=== PATIENT | female | born 1995 | race Caucasian/White ===

== ENCOUNTER 2024-06-29 07:46 | Inpatient (IN) | payer OTHER, SELFPAY ==
--- NOTE | ~2024-06-29 | US_ITS ---
EXAMINATION: US ABDOMEN LIMITED CLINICAL INFORMATION: Right upper quadrant pain. Abnormal CT. COMPARISON: CT abdomen pelvis dated 06/29/2024. TECHNIQUE: Real-time imaging of the gallbladder was performed. FINDINGS: GALLBLADDER: The gallbladder contains multiple shadowing calculi. The gallbladder wall is markedly thickened, measuring up to 1.1 cm. There is fluid within the gallbladder wall. There is pericholecystic fluid. The personal care aid reports a negative sonographic Sierra sign, however, the patient was given pain medication prior to the examination. US/US abdomen limited IMPRESSION: Findings highly suggestive of acute cholecystitis as described.
--- NOTE | ~2024-06-29 | CT_ITS ---
EXAMINATION: CT ABDOMEN AND PELVIS WITHOUT CONTRAST CLINICAL INFORMATION: Mid abdominal pain and leukocytosis. Evaluate for appendicitis. COMPARISON: None available. TECHNIQUE: Multidetector volumetric imaging was performed from the superior aspect of the liver through the pubic symphysis. Sagittal and coronal reformatted images were obtained on the technologist's workstation. This CT examination was performed using dose optimization techniques as appropriate, variously including the following: *Automated exposure control *Adjustment of mA and/or kV according to patient size (this includes techniques or standardized protocols for targeted exams where dose is matched to indication/reason for exam; i.e. extremities or head) *Use of iterative reconstruction technique DLP: 414 mGy-cm FINDINGS: LUNG BASES: No pulmonary consolidation or pleural effusion. HEPATOBILIARY: Liver has normal size, shape, and attenuation. Gallbladder wall is diffusely thickened. No adjacent fat stranding or pericholecystic fluid. An irregular calcific density in the gallbladder fundus appears to represent a predominantly peripherally calcified stone. No dilated bile ducts. PANCREAS: .No edema, pancreatic ductal dilatation or mass. SPLEEN: Normal. ADRENAL GLANDS: Normal. KIDNEYS AND URETERS: Kidneys have normal size and attenuation. No perinephric fluid collection, urolithiasis or hydroureteronephrosis. BLADDER: Normal. BOWEL AND PERITONEUM: Stomach and small bowel are unremarkable. No dilated loops. The appendix is normal. No overt colonic wall thickening or mesenteric fat stranding. No free fluid or pneumoperitoneum. ABDOMINAL WALL: Unremarkable. VASCULATURE: Normal for noncontrast examination. LYMPH NODES: No pathologic sized lymph nodes in the abdomen or pelvis. No inguinal lymphadenopathy. PELVIC VISCERA: Unremarkable. MUSCULOSKELETAL: Unremarkable. CT/CT abdomen pelvis wo IV con IMPRESSION: * No evidence of appendicitis. * The irregular, somewhat rim-like calcification at the gallbladder fundus is likely from cholelithiasis and the gallbladder wall is diffusely thickened. Although wall thickening could be a manifestation of cholecystitis, there is no adjacent fat stranding or pericholecystic fluid. Query if patient is developing pain more localized to the right upper quadrant. These CT imaging abnormalities could be correlated with right upper quadrant ultrasound and/or hepatobiliary scintigraphy, if deemed clinically appropriate.
--- NOTE | 2024-06-29 08:02 | ECG_ITS ---
Test Reason : EPIGASTRIC PAIN Blood Pressure : / mmHG Vent. Rate : 065 BPM Atrial Rate : 065 BPM P-R Int : 152 ms QRS Dur : 086 ms QT Int : 416 ms P-R-T Axes : 031 042 027 degrees QTc Int : 432 ms Normal sinus rhythm Normal ECG No previous ECGs available Referred By: Jocelyn Celaya Electronically Signed By:MILLY VILLALPANDO
--- NOTE | 2024-06-29 08:03 | ED.ABDPAIN ---
HPI - Abdominal Pain General Chief Complaint: Nausea/Vomiting/Diarrhea Stated Complaint: ABD PAIN X6H,VOMITING PER EMS Time Seen by Provider: 06/29/24 07:51 Source: patient and EMS Mode of arrival: EMS Limitations: no limitations History of Present Illness ED Provider: DR. Celaya HPI narrative: 28-year-old assigned as male at , and would like to be called female presented with nausea and vomiting with epigastric abdominal pain started since last night after eating a big bag of chips, no other sick contacts patient lives home alone, no recent use of antibiotic, patient declined alcohol abuse but admit to smoking marijuana daily. Related Data Home Medications ?Medication ?Instructions ?Recorded ?Confirmed estradiol valerate 20 mg/mL mg IM 06/29/24 intramuscular oil tamsulosin 0.4 mg capsule 0.4 mg PO DAILY 06/29/24 Allergies Allergy/AdvReac Type Severity Reaction Status Date / Time No Known Allergies Allergy Verified 06/29/24 08:22 Review of Systems Review of Systems All other systems are reviewed and are negative Constitutional: Reports as per HPI and Reports no additional constitutional complaints Eyes: Reports as per HPI and Reports no additional eye complaints Reports system reviewed and no additional complaints, except as documented Cardiovascular: Reports as per HPI and Reports no additional cardiovascular complaints Respiratory: Reports as per HPI and Reports no additional respiratory complaints Gastrointestinal: Reports as per HPI and Reports no additional gastrointestinal complaints Genitourinary: Reports no additional female genitourinary complaints Musculoskeletal: Reports no additional musculoskeletal complaints Skin/Breast: Reports system reviewed and no additional complaints, except as docu Psychiatric: Reports no additional psychiatric complaints Endocrine: Reports no additional endocrine complaints Hematologic/Lymphatic: Reports no additional hematologic/lymphatic complaints Allergic/Immunologic: Reports no additional allergic/immunologic complaints Reports system reviewed and no additional complaints, except as documented and Reports Abnormal speech present [facility] Past Medical History Medical History (Updated 06/29/24 @ 14:07 by Rufino Meyer MD) Gallstone Social History Social History Advance Directives: No Advance Directives Information Provided: No Physical Exam ED Vital Signs: Vital Signs - 24 hr 06/29/24 08:17 06/29/24 13:02 Temperature 98.1 F 98.2 F Pulse Rate 76 71 Respiratory Rate 14 14 Blood Pressure 121/71 123/79 Pulse Oximetry 94 97 Oxygen Delivery Method Room Air Room Air BMI result Body Mass Index 23.3 Vital signs have been reviewed and appear to be correct. Blood pressure elevated. Heart rate normal. Respiratory rate normal. Temperature normal. Oxygen saturation normal. Appearance: Alert. Oriented X3. No acute distress. Head: Normal external exam. Normocephalic. Atraumatic. No Pak signs noted. No raccoon eyes noted Eyes: PERRLA. EOMI. Conjunctiva and sclera normal. Eyelids normal. ENT: TM's Normal. Pharynx normal. Uvula midline. Moist mucous membranes. No trismus noted. No drooling noted. No muffled voice noted. Neck: Normal inspection. Neck supple. FROM. No adenopathy. Thyroid Normal. No meningeal signs. No neck mass noted. CVS: Normal heart rate and rhythm. Heart sound normal. No murmurs noted. Pulses normal throughout. Respiratory: No respiratory distress. Painless inspiration. Breath sounds normal. No wheezes/rales/rhonchi noted. Chest nontender. No accessory muscle usage noted or decreased air movement noted. Abdomen: Soft, mild epigastric tenderness, no guarding, no rebound tenderness. Bowel sounds normal in all 4 quadrants. No distention noted. No organomegaly noted. No visible injury noted. Rectal exam: No external or internal hemorrhoid, no active bleeding, stool yellow guaiac negative, done in the presence of female piccolo mechanic in room. Back: No CVA tenderness. Full range of motion noted. Skin: Skin warm and dry. Normal skin color. Normal skin turgor. No rashes/lesions/lacerations noted. Extremities: No lower extremity edema. Extremities exhibit normal range of motion. Extremities nontender. Neuro: Oriented X 3. Cranial nerve exam: II-XII are grossly intact No motor deficit. No sensory deficit. Reflexes normal. Course Reevaluation(s) Reevaluation #1: Abdominal pain with nausea and vomiting, CT showed cholelithiasis ultrasound is confirming acute cholecystitis. Discussed with Dr. Meyer covering for surgery today, no sepsis, start on Zosyn, NPO. Time: 12:52 Medical Decision Making Differential Diagnosis Differential Diagnoses: The differential diagnosis associated with the presentation includes (Pancreatitis, gastritis, acute cholecystitis, acute appendicitis, colitis, acute diverticulitis, dehydration, electrolyte derangement, severe anemia.) Admission/Observation Consideration of admission/observation: Escalation of care including admission/observation considered Consult Healthcare Provider Management of the patient was discussed with: Relationship Banker (Dr. Meyer) Lab Data MDM Lab Attestation statement: I reviewed the patient's lab results. 06/29/24 08:30 06/29/24 08:30 Labs: Lab Results 06/29/24 06/29/24 06/29/24 Range/Units 08:30 08:33 13:12 WBC 13.7 H (4.8-10.8) X10*3/uL RBC 4.38 (4.20-5.50) X10*6/uL Hgb 13.2 (12.0-16.0) g/dl Hct 37.5 (37.0-47.0) % MCV 85.6 (80.0-98.0) fL MCH 30.1 (27.0-33.0) pg MCHC 35.2 H (31.0-35.0) g/dl RDW 12.2 (11.0-16.0) % Plt Count 232 (160-400) X10*3/uL MPV 10.6 (9.4-12.3) fL Immature Gran % (Auto) 0.4 (0.0-0.4) % Neut % (Auto) 84.5 H (45-73) % Lymph % (Auto) 9.7 L (20-40) % [place] % (Auto) 5.2 (2-11) % Eos % (Auto) 0.0 (0-4) % Baso % (Auto) 0.2 (0-2) % Lymph # (Auto) 1.3 (1.2-4.9) X10*3/uL [place] # (Auto) 0.7 (0.1-1.2) X10*3/uL Eos # (Auto) 0.0 (0.0-0.4) X10*3/uL Baso # (Auto) 0.0 (0.0-0.2) X10*3/uL Abs Immat Gran (auto) 0.05 H (0.00-0.03) X10*3/uL Absolute Neuts (auto) 11.6 H (2.0-8.3) x10*3/uL Absolute Nucleated RBC 0.000 (0.0-0.012) X10*3/uL Nucleated RBC % (auto) 0.0 (0.0-0.2) /100WBC Sodium 141 (135-145) mmol/L Potassium 3.8 (3.3-5.1) mmol/L Chloride 107 (96-108) mmol/L Carbon Dioxide 23 (22-29) mmol/L Anion Gap 15 (12-20) BUN 9 (9-16) mg/dL Creatinine 0.81 (0.5-1.4) mg/dL Estim Creat Clear Calc 98.7 Estimated GFR > 60 Random Glucose 109 (60-115) mg/dL Calcium 9.6 (8.4-10.2) mg/dL Total Bilirubin 0.3 (0.0-1.0) mg/dL Direct Bilirubin 0.1 (0.0-0.5) mg/dL AST 23 (5-31) U/L ALT 29 (0-31) U/L Alkaline Phosphatase 49 (39-117) U/L Troponin I High Sens < 2.7 (<3.5-17.0) ng/L Total Protein 7.2 (6.5-8.0) g/dL Albumin 4.4 (3.5-5.0) g/dL Lipase 14 (8-78) U/L Urine Color Yellow Urine Appearance Clear Urine pH >= 9.0 (5.0-9.0) Ur Specific [place] 1.025 (1.005-1.025) Urine Protein 30 (1+) H (Neg-Trace) mg/dL Urine Glucose (UA) Negative (Negative) mg/dL Urine Ketones Negative (Negative) mg/dL Urine Blood Negative (Negative) Urine Nitrite Negative (Negative) Ur Leukocyte Esterase Moderate (2+) H (Negative) Urine RBC 0-2 (0-2) /HPF Urine WBC 21-50 (0-5) /HPF Ur Squamous Epith Cells 3-5 (0-2) /HPF Urine Bacteria None Seen (None Seen) Hyaline Casts 0-2 (0-2) /LPF Urine Test NEGATIVE (NEGATIVE) Stool Occult Blood NEGATIVE (NEGATIVE) Urine Opiates Screen Not Detected (Not Detect) Ur Buprenorphine Scrn Not Detected (Not Detect) ng/mL Ur Oxycodone Screen Not Detected (Not Detect) ng/mL Urine Methadone Screen Not Detected (Not Detect) ng/mL Urine Fentanyl Screen Not Detected (Not Detect) Ur Barbiturates Screen Not Detected (Not Detect) Ur Phencyclidine Scrn Not Detected (Not Detect) Ur Amphetamines Screen Not Detected (Not Detect) U Benzodiazepines Scrn Not Detected (Not Detect) Urine Cocaine Screen Not Detected (Not Detect) U Marijuana (THC) Screen POSITIVE H (Not Detect) Independent Interpretation I performed an independent interpretation of an: Ultrasound (Acute cholecystitis) and CT Scan (Abdomen pelvis: No evidence of appendicitis. * The irregular, somewhat rim-like calcification at the gallbladder fundus is likely from cholelithiasis and the gallbladder wall is diffusely thickened. Although wall thickening could be a manifestation of cholecystitis, there is no adjacent fat strandi) Radiology Impression Discussion of test interpretation with radiology: I have reviewed the radiologist's reading. Medications Administered Discontinued Medications Generic Name Dose Route Start Last Admin Trade Name Freq PRN Reason Stop Dose Admin Al Hydroxide/Mg Hydroxide 30 ml 06/29/24 08:01 06/29/24 08:33 Magnesium Hydrox/Alum Hydrox 30 Ml Oral.Susp PO 06/29/24 08:02 30 ml ONCE ONE Administration Famotidine 20 mg 06/29/24 08:01 06/29/24 08:33 Famotidine/Pf 20 Mg/2 Ml Vial IVPUSH 06/29/24 08:02 20 mg ONCE ONE Administration Sodium Chloride 1,000 mls @ 999 mls/hr 06/29/24 08:01 06/29/24 13:35 Ns IV 06/29/24 09:01 Infused .Q1H1M ONE Infusion Piperacillin Sod/Tazobactam 50 mls @ 100 mls/hr 06/29/24 12:52 06/29/24 13:57 Sod 3.375 gm/ Sodium Chloride IV 06/29/24 13:21 100 mls/hr ONCE ONE Administration Ondansetron HCl 4 mg 06/29/24 08:01 06/29/24 08:33 Ondansetron Hcl 4 Mg/2 Ml Vial IVPUSH 06/29/24 08:02 4 mg ONCE ONE Administration Discharge Plan Discharge Clinical Impression: Acute cholecystitis Patient Disposition: Admitted As Inpatient
[2024-06-29 08:17] VITALS: BP 121/71; BP 148/82; PULSE 103; PULSE 76; RESP 14; TEMP 36.7; O2SAT 94; O2SAT 96; BMI 23.3
[2024-06-29] MEDS: 0.9 % Sodium Chloride 1,000 ML 999 ML IV (08:30)
[2024-06-29 08:33] LABS: MANUAL DIFF FLAG NO
[2024-06-29] MEDS: Famotidine/PF 20 MG/2 ML VIAL IVPUSH (08:33)
[2024-06-29] MEDS: ondansetron HCL 4 MG/2 ML VIAL IVPUSH (08:33)
[2024-06-29] MEDS: Magnesium Hydrox/Alum Hydrox 30 ML ORAL.SUSP PO (08:33)
[2024-06-29 08:35] LABS: Basophils Percent Auto 0.2 % (0-2); Hematocrit 37.5 % (37.0-47.0); Hemoglobin 13.2 g/dl (12.0-16.0); Imm Gran Abs Auto 0.05 X10*3/uL (0.00-0.03); Imm Gran Pct Auto 0.4 % (0.0-0.4); Lymphocytes Absolute Auto 1.3 X10*3/uL (1.2-4.9); Lymphocytes Percent Auto 9.7 % (20-40); Mean Corpuscular HGB Conc 35.2 g/dl (31.0-35.0); Mean Corpuscular Hemoglobin 30.1 pg (27.0-33.0); Mean Corpuscular Volume 85.6 fL (80.0-98.0); Mean Platelet Volume 10.6 fL (9.4-12.3); Monocytes Absolute Auto 0.7 X10*3/uL (0.1-1.2); Monocytes Percent Auto 5.2 % (2-11); Neutrophils Absolute Auto 11.6 x10*3/uL (2.0-8.3); Neutrophils Percent Auto 84.5 % (45-73); Platelet Count 232 X10*3/uL (160-400); Red Blood Count 4.38 X10*6/uL (4.20-5.50); Red Cell Distribution Width 12.2 % (11.0-16.0); White Blood Count 13.7 X10*3/uL (4.8-10.8)
[2024-06-29 08:49] LABS: OBS Int Ctl Valid YES; OBS1 NEGATIVE (NEGATIVE)
[2024-06-29 08:51] LABS: Alanine Aminotransferase 29 U/L (0-31); Albumin Level 4.4 g/dL (3.5-5.0); Alkaline Phosphatase 49 U/L (39-117); Anion Gap 15 (12-20); Aspartate Amino Transferase 23 U/L (5-31); Bilirubin Direct 0.1 mg/dL (0.0-0.5); Bilirubin Total 0.3 mg/dL (0.0-1.0); Blood Urea Nitrogen 9 mg/dL (9-16); Calcium 9.6 mg/dL (8.4-10.2); Carbon Dioxide 23 mmol/L (22-29); Chloride 107 mmol/L (96-108); Creatinine Clr Calc Pharmacy 98.7; Estimated Glomerular Filt Rate > 60; Glucose Random 109 mg/dL (60-115); Lipase 14 U/L (8-78); Potassium 3.8 mmol/L (3.3-5.1); Sodium 141 mmol/L (135-145); Total Protein 7.2 g/dL (6.5-8.0)
[2024-06-29 09:13] LABS: Troponin-I High Sensitivity < 2.7 ng/L (<3.5-17.0)
[2024-06-29 13:02] VITALS: BP 123/79; PULSE 71; RESP 14; TEMP 36.8; O2SAT 97
[2024-06-29 13:22] LABS: Appearance Urine Clear; Color Urine Yellow; Glucose Urine UA Negative (Negative); Leukocyte Esterase Urine Moderate (2+) (Negative); Nitrite Urine Negative (Negative); PH >= 9.0 (5.0-9.0); Specific Gravity - Urine 1.025 (1.005-1.025); UMIC TRIGGER UACC YES; Urine Blood Negative (Negative); Urine Ketones Negative (Negative); Urine Protein 30 (1+) mg/dL (Neg-Trace)
[2024-06-29 13:24] LABS: UPreg QC Valid YES; Urine Pregnancy NEGATIVE (NEGATIVE)
[2024-06-29 13:32] LABS: Bacteria Urine None Seen (None Seen); Hyaline Casts Urine 0-2 /LPF (0-2); RBC Urine 0-2 /HPF (0-2); UACC Culture Trigger YES; WBC Urine 21-50 /HPF (0-5)
[2024-06-29 13:34] LABS: Amphetamine Screen Urine Not Detected (Not Detect); Barbiturates, Urine Not Detected (Not Detect); Benzodiazepines Screen Urine Not Detected (Not Detect); Buprenorphine Scr Not Detected (Not Detect); Cannabinoid Screen Urine POSITIVE (Not Detect); Cocaine Screen Urine Not Detected (Not Detect); Fentanyl, urine Not Detected (Not Detect); Methadone Screen, Urine Not Detected (Not Detect); Opiate Screen Urine Not Detected (Not Detect); Oxycodone Screen Urine Not Detected (Not Detect); Phencyclidine Screen Urine Not Detected (Not Detect)
[2024-06-29] MEDS: Piperacillin Sodium/Tazobactam 3.375 GM in 0.9 % Sodium Chloride 50 ML IV ×2 (13:57→20:15)
--- NOTE | 2024-06-29 14:03 | PM.HPGS ---
History of Present Illness History of Present Illness Date of Service: 07/01/24 Chief complaint: gallstone Narrative: Chuck Mao is a 28 year old female (assigned male gender at ) here in the ER for abdominal pain. She says that around midnight last night, she had some pain in the epigastric area. This seemed to have persisted for several hours shows he she decided to come to the emergency room around 07:00 o'clock in the morning. She says that the pain has resolved he has not time however She had a CAT scan done showing a large gallstone with question of gallbladder wall thickening. She denies any similar episodes like this in the past. She does state that she has had some diffuse mild abdominal pain before She denies any vomiting but did have some nausea. She denies any other GI complaints. The only medication she takes estradiol. Review of Systems Constitutional: Constitutional: Denies chills and Denies fever(s) Cardiovascular: Cardiovascular: Denies chest pain, Denies dyspnea and Denies dyspnea on exertion Respiratory: Respiratory: Denies cough, Denies dyspnea and Denies dyspnea on exertion Gastrointestinal: Gastrointestinal: Denies hematochezia and Denies change in bowel habits Genitourinary: Genitourinary: Denies hematuria Musculoskeletal: Musculoskeletal: Denies back pain and Denies limited range of motion Neurologic: Denies focal weakness and Denies convulsions Psychiatric: Psychiatric: Denies depression and Denies mood swings [facility] Past Medical History Medical History (Updated 06/29/24 @ 14:07 by Rufino Meyer MD) Gallstone Social History Social History Household Members: None Housing: Apartment Do you presently have visiting nurse or other home services: No Patient Tobacco Use Status: Never used Tobacco Substance Use Type: Marijuana service: No Meds Allergies Allergy/AdvReac Type Severity Reaction Status Date / Time No Known Allergies Allergy Verified 06/29/24 08:22 Home Medications ?Medication ?Instructions ?Recorded ?Confirmed ?Last Taken ?Type acetaminophen 325 mg tablet 650 mg PO Q6H PRN Migraine Headache 06/29/24 06/29/24 Unknown History (Tylenol) estradiol valerate 20 mg/mL 5 mg IM FR 06/29/24 06/29/24 06/26/24 08:00 History intramuscular oil ibuprofen 200 mg tablet 400 mg PO Q6H PRN Migraine Headache 06/29/24 06/29/24 Unknown History Physical Exam Vital Signs: Vital Signs: Last Vital Signs Temp 98.2 F 06/29/24 13:02 Pulse 71 06/29/24 13:02 Resp 14 06/29/24 13:02 BP 123/79 06/29/24 13:02 Pulse Ox 97 06/29/24 13:02 O2 Del Method Room Air 06/29/24 13:02 BMI result Body Mass Index 23.3 Const: Other: Denies pain at this time General: comfortable and no acute distress Orientation/consciousness: patient oriented x3 Neck: Neck: Yes no lymphadenopathy Resp: Auscultation: clear to auscultation bilaterally Cardio: Rhythm: regular rhythm GI: Other: Nontender, no Sierra's sign Palpation (GI): Soft to palpation, nontender and no guarding Neuro: General: patient oriented x3 Results Results Labs: Short CBC 06/29/24 Range/Units 08:30 WBC 13.7 H (4.8-10.8) X10*3/uL Hgb 13.2 (12.0-16.0) g/dl Hct 37.5 (37.0-47.0) % Plt Count 232 (160-400) X10*3/uL BMP 06/29/24 08:30 Sodium 141 Potassium 3.8 Chloride 107 Carbon Dioxide 23 BUN 9 Creatinine 0.81 Calcium 9.6 Liver Function 06/29/24 Range/Units 08:30 Total Bilirubin 0.3 (0.0-1.0) mg/dL Direct Bilirubin 0.1 (0.0-0.5) mg/dL AST 23 (5-31) U/L ALT 29 (0-31) U/L Alkaline Phosphatase 49 (39-117) U/L Albumin 4.4 (3.5-5.0) g/dL Urine 06/29/24 Range/Units 13:12 Urine Color Yellow Urine Appearance Clear Urine pH >= 9.0 (5.0-9.0) Ur Specific [place] 1.025 (1.005-1.025) Urine Protein 30 (1+) H (Neg-Trace) mg/dL Urine Glucose (UA) Negative (Negative) mg/dL Urine Test NEGATIVE (NEGATIVE) Abdomen CT scan report/results: report reviewed and image reviewed CT scan - pelvis: report reviewed and image reviewed Additional studies: Laboratory Results WBC 13.7 X10*3/uL (4.8-10.8) H 06/29/24 08:30 RBC 4.38 X10*6/uL (4.20-5.50) 06/29/24 08:30 Hgb 13.2 g/dl (12.0-16.0) 06/29/24 08:30 Hct 37.5 % (37.0-47.0) 06/29/24 08:30 MCV 85.6 fL (80.0-98.0) 06/29/24 08:30 MCH 30.1 pg (27.0-33.0) 06/29/24 08:30 MCHC 35.2 g/dl (31.0-35.0) H 06/29/24 08:30 RDW 12.2 % (11.0-16.0) 06/29/24 08:30 Plt Count 232 X10*3/uL (160-400) 06/29/24 08:30 MPV 10.6 fL (9.4-12.3) 06/29/24 08:30 Immature Gran % (Auto) 0.4 % (0.0-0.4) 06/29/24 08:30 Neut % (Auto) 84.5 % (45-73) H 06/29/24 08:30 Lymph % (Auto) 9.7 % (20-40) L 06/29/24 08:30 [place] % (Auto) 5.2 % (2-11) 06/29/24 08:30 Eos % (Auto) 0.0 % (0-4) 06/29/24 08:30 Baso % (Auto) 0.2 % (0-2) 06/29/24 08:30 Lymph # (Auto) 1.3 X10*3/uL (1.2-4.9) 06/29/24 08:30 [place] # (Auto) 0.7 X10*3/uL (0.1-1.2) 06/29/24 08:30 Eos # (Auto) 0.0 X10*3/uL (0.0-0.4) 06/29/24 08:30 Baso # (Auto) 0.0 X10*3/uL (0.0-0.2) 06/29/24 08:30 Abs Immat Gran (auto) 0.05 X10*3/uL (0.00-0.03) H 06/29/24 08:30 Absolute Neuts (auto) 11.6 x10*3/uL (2.0-8.3) H 06/29/24 08:30 Absolute Nucleated RBC 0.000 X10*3/uL (0.0-0.012) 06/29/24 08:30 Nucleated RBC % (auto) 0.0 /100WBC (0.0-0.2) 06/29/24 08:30 Sodium 141 mmol/L (135-145) 06/29/24 08:30 Potassium 3.8 mmol/L (3.3-5.1) 06/29/24 08:30 Chloride 107 mmol/L (96-108) 06/29/24 08:30 Carbon Dioxide 23 mmol/L (22-29) 06/29/24 08:30 Anion Gap 15 (12-20) 06/29/24 08:30 BUN 9 mg/dL (9-16) 06/29/24 08:30 Creatinine 0.81 mg/dL (0.5-1.4) 06/29/24 08:30 Estim Creat Clear Calc 98.7 06/29/24 08:30 Estimated GFR > 60 06/29/24 08:30 Random Glucose 109 mg/dL (60-115) 06/29/24 08:30 Calcium 9.6 mg/dL (8.4-10.2) 06/29/24 08:30 Total Bilirubin 0.3 mg/dL (0.0-1.0) 06/29/24 08:30 Direct Bilirubin 0.1 mg/dL (0.0-0.5) 06/29/24 08:30 AST 23 U/L (5-31) 06/29/24 08:30 ALT 29 U/L (0-31) 06/29/24 08:30 Alkaline Phosphatase 49 U/L (39-117) 06/29/24 08:30 Troponin I High Sens < 2.7 ng/L (<3.5-17.0) 06/29/24 08:30 Total Protein 7.2 g/dL (6.5-8.0) 06/29/24 08:30 Albumin 4.4 g/dL (3.5-5.0) 06/29/24 08:30 Lipase 14 U/L (8-78) 06/29/24 08:30 Urine Color Yellow 06/29/24 13:12 Urine Appearance Clear 06/29/24 13:12 Urine pH >= 9.0 (5.0-9.0) 06/29/24 13:12 Ur Specific [place] 1.025 (1.005-1.025) 06/29/24 13:12 Urine Protein 30 (1+) mg/dL (Neg-Trace) H 06/29/24 13:12 Urine Glucose (UA) Negative mg/dL (Negative) 06/29/24 13:12 Urine Ketones Negative mg/dL (Negative) 06/29/24 13:12 Urine Blood Negative (Negative) 06/29/24 13:12 Urine Nitrite Negative (Negative) 06/29/24 13:12 Ur Leukocyte Esterase Moderate (2+) (Negative) H 06/29/24 13:12 Urine RBC 0-2 /HPF (0-2) 06/29/24 13:12 Urine WBC 21-50 /HPF (0-5) 06/29/24 13:12 Ur Squamous Epith Cells 3-5 /HPF (0-2) 06/29/24 13:12 Urine Bacteria None Seen (None Seen) 06/29/24 13:12 Hyaline Casts 0-2 /LPF (0-2) 06/29/24 13:12 Urine Test NEGATIVE (NEGATIVE) 06/29/24 13:12 Stool Occult Blood NEGATIVE (NEGATIVE) 06/29/24 08:33 Urine Opiates Screen Not Detected (Not Detect) 06/29/24 13:12 Ur Buprenorphine Scrn Not Detected ng/mL (Not Detect) 06/29/24 13:12 Ur Oxycodone Screen Not Detected ng/mL (Not Detect) 06/29/24 13:12 Urine Methadone Screen Not Detected ng/mL (Not Detect) 06/29/24 13:12 Urine Fentanyl Screen Not Detected (Not Detect) 06/29/24 13:12 Ur Barbiturates Screen Not Detected (Not Detect) 06/29/24 13:12 Ur Phencyclidine Scrn Not Detected (Not Detect) 06/29/24 13:12 Ur Amphetamines Screen Not Detected (Not Detect) 06/29/24 13:12 U Benzodiazepines Scrn Not Detected (Not Detect) 06/29/24 13:12 Urine Cocaine Screen Not Detected (Not Detect) 06/29/24 13:12 U Marijuana (THC) Screen POSITIVE (Not Detect) H 06/29/24 13:12 Impressions Abdomen/Pelvis CT 06/29/24 10:33 IMPRESSION: * No evidence of appendicitis. * The irregular, somewhat rim-like calcification at the gallbladder fundus is likely from cholelithiasis and the gallbladder wall is diffusely thickened. Although wall thickening could be a manifestation of cholecystitis, there is no adjacent fat stranding or pericholecystic fluid. Query if patient is developing pain more localized to the right upper quadrant. These CT imaging abnormalities could be correlated with right upper quadrant ultrasound and/or hepatobiliary scintigraphy, if deemed clinically appropriate. Assessment and Plan (1) Gallstone: Status: Acute 28 year old female who had epigastric pain overnight. This has since resolved. Her imaging studies show a gallstone with question of bowel wall thickening. There is no pericholecystic fluid or any fat stranding or any other inflammatory changes I did explain to her that she may have had biliary colic or cholecystitis. Her pain has completely resolved and she had wanted to be discharged. I had recommended for her to stay in the hospital to be observed at least for now. She has recurrence of pain or other symptoms that may be relatable to gallstones, I explained to her that I would recommend proceeding with cholecystectomy. I did describe to her the technique of laparoscopic cholecystectomy and possible open cholecystectomy. I reviewed the risks including but not limited to bleeding, infections, injury to other organs, bile leak, retained stones, as well as the benefits and alternatives She finally agreed to stay now and says that if possible, she would like to hold off on surgical intervention. We will rediscuss this in the morning. Since she has some leukocytosis I will start her on some Zosyn. She is hemodynamically stable and looks well overall. Quality Stroke Does the patient have a stroke diagnosis?: No VTE Prior VTE?: No VTE Risk Level:: Medical - low VTE Device Contraindication: Treatment Not Indicated VTE Drug Contraindication: Treatment Not Indicated Procedures Date of Service Date of Service: 07/01/24
[2024-06-29 14:31] VITALS: BP 114/60; PULSE 69; RESP 14; TEMP 37.1; O2SAT 98
[2024-06-29] MEDS: Lactated Ringers 1,000 ML 80 ML IVCONT (15:02)
--- NOTE | 2024-06-29 15:04 | PHA.MEDREC ---
Pharmacy Consult ? Medication Reconciliation Pharmacy has completed the medication reconciliation. Spoke with patient.
[2024-06-29 16:43] VITALS: BP 119/75; PULSE 70; RESP 16; TEMP 37.1; O2SAT 100
--- NOTE | 2024-06-29 16:45 | MHC.EDTECH ---
This pct assumed care of Patient at 1500 ,vitals taken ,Patient wants to wait to change into hospital gown until she goes upstairs .
--- NOTE | 2024-06-29 17:46 | PM.EVENT ---
Event Note Date of Service: 06/30/24 Event Note: Seen on late afternoon rounds Says he is doing well Denies pain Stable vital signs Abdomen soft, nontender We will re-evaluate tomorrow morning He currently states that he would like to hold off on any surgical intervention Time Spent With Patient Time: Total time managing care of this patient today ____ minutes.
--- NOTE | 2024-06-29 18:07 | PC.NURSE ---
Patient alert and oriented x 3. Patient has a 20g in left AC. Patient denies any pain. Dr. Meyer has consulted for surgery. Patient on a clear liquid diet. Patient still considering whether or not to have surgery. Will continue with plan of care.
[2024-06-29 20:13] VITALS: BP 117/80; PULSE 70; RESP 16; TEMP 36.8; O2SAT 98
[2024-06-29 22:35] VITALS: BP 130/90; PULSE 97; RESP 16; TEMP 36.7; O2SAT 99
[2024-06-30] MEDS: Piperacillin Sodium/Tazobactam 3.375 GM in 0.9 % Sodium Chloride 50 ML IV ×3 (00:53→12:17)
[2024-06-30] MEDS: 0.9 % Sodium Chloride Flush 3 ML SYRINGE IVFLUSH ×2 (00:53→07:11)
[2024-06-30 03:40] VITALS: BP 118/66; PULSE 74; RESP 18; TEMP 36.3; O2SAT 97
[2024-06-30] MEDS: Lactated Ringers 1,000 ML 80 ML IVCONT (03:40)
[2024-06-30] MEDS: Acetaminophen 325 MG TABLET 650 MG PO (07:10)
[2024-06-30 07:19] VITALS: BP 110/67; PULSE 60; RESP 16; TEMP 36.8; O2SAT 100
--- NOTE | 2024-06-30 07:54 | P.PNGS_ITS ---
Subjective Subjective Date of Service: 07/01/24 Interval history: Says she feels well this morning Denies right upper quadrant pain Does state that he has some discomfort in the lower pelvis near his urinary bladder and his lower back she wants to eat Physical Exam 2 Vital Signs: Vital Signs: Last Vital Signs Temp 98.2 F 06/30/24 07:19 Pulse 60 06/30/24 07:19 Resp 16 06/30/24 07:19 BP 110/67 06/30/24 07:19 Pulse Ox 100 06/30/24 07:19 O2 Del Method Room Air 06/30/24 07:19 BMI result Body Mass Index 23.3 Const: Other: Somewhat anxious General: comfortable and no acute distress Resp: Effort & Inspection: normal respiratory effort Cardio: Rate: regular rate GI: Other: No tenderness, no Sierra's sign Palpation (GI): Soft to palpation, not firm, nontender and no guarding Objective Data Active Medications Acetaminophen (Acetaminophen 325 Mg Tablet) 650 mg PO Q6H PRN PRN Reason: Pain, Mild (Pain Scale 1-3), fever or headache Last Admin: 06/30/24 07:10 Dose: 650 mg Documented By: WESLEY Calcium Carbonate (Calcium Carbonate 750 Mg Tab.Chew) 750 mg PO Q4H PRN PRN Reason: Heartburn Lactated Ringer's (Lr) 1,000 mls @ 80 mls/hr IVCONT .[id number] [facility] Last Infusion: 06/30/24 06:35 Dose: 0 mls/hr Documented By: RANDI Piperacillin Sod/Tazobactam (Sod 3.375 gm/ Sodium Chloride) 50 mls @ 100 mls/hr IV Q6H [facility] Last Infusion: 06/30/24 07:04 Dose: Infused Documented By: WESLEY Melatonin (Melatonin 3 Mg Tablet) 6 mg PO BEDTIME PRN PRN Reason: Insomnia Morphine Sulfate (Morphine Sulfate 4 Mg/Ml Cartridge) 2 mg IVPUSH Q4H PRN; Protocol PRN Reason: Pain, Severe (Pain Scale 7-10) Oxycodone HCl (Oxycodone Hcl Immed Release 5 Mg Tablet) 5 mg PO Q4H PRN PRN Reason: Pain, Moderate(Pain Scale 4-6) Sodium Chloride (0.9 % Sodium Chloride Flush 3 Ml Syringe) 3 ml IVFLUSH QSHIFT [facility] Last Admin: 06/30/24 07:11 Dose: 3 ml Documented By: WESLEY Labs 06/30/24 09:11 06/30/24 09:11 Labs: Laboratory Results - last 24 hr 06/29/24 06/29/24 06/29/24 08:30 08:33 13:12 MCV 85.6 MCH 30.1 MCHC 35.2 H RDW 12.2 Plt Count 232 MPV 10.6 Immature Gran % (Auto) 0.4 Neut % (Auto) 84.5 H Lymph % (Auto) 9.7 L Garvin % (Auto) 5.2 Eos % (Auto) 0.0 Baso % (Auto) 0.2 Lymph # (Auto) 1.3 Garvin # (Auto) 0.7 Eos # (Auto) 0.0 Baso # (Auto) 0.0 Abs Immat Gran (auto) 0.05 H Absolute Neuts (auto) 11.6 H Absolute Nucleated RBC 0.000 Nucleated RBC % (auto) 0.0 Anion Gap 15 Estim Creat Clear Calc 98.7 Estimated GFR > 60 Random Glucose 109 Calcium 9.6 Total Bilirubin 0.3 Direct Bilirubin 0.1 AST 23 ALT 29 Alkaline Phosphatase 49 Troponin I High Sens < 2.7 Total Protein 7.2 Albumin 4.4 Lipase 14 Urine Color Yellow Urine Appearance Clear Urine pH >= 9.0 Ur Specific [place] 1.025 Urine Protein 30 (1+) H Urine Glucose (UA) Negative Urine Ketones Negative Urine Blood Negative Urine Nitrite Negative Ur Leukocyte Esterase Moderate (2+) H Urine RBC 0-2 Urine WBC 21-50 Ur Squamous Epith Cells 3-5 Urine Bacteria None Seen Hyaline Casts 0-2 Urine Test NEGATIVE Stool Occult Blood NEGATIVE Urine Opiates Screen Not Detected Ur Buprenorphine Scrn Not Detected Ur Oxycodone Screen Not Detected Urine Methadone Screen Not Detected Urine Fentanyl Screen Not Detected Ur Barbiturates Screen Not Detected Ur Phencyclidine Scrn Not Detected Ur Amphetamines Screen Not Detected U Benzodiazepines Scrn Not Detected Urine Cocaine Screen Not Detected U Marijuana (THC) Screen POSITIVE H Procedures Date of Service Date of Service: 07/01/24 Progress Note: A&P Assessment and plan (1) Gallstone: Status: Acute Assessment and Plan: She denies any pain or tenderness at this time Imaging studies suggest cholecystitis No fever Looks well overall She states that she wants to hold off on surgery for now if possible I will start her on diet and re-evaluate later on today Labs pending Time Spent With Patient Time: Total time managing care of this patient today ____ minutes. Quality Stroke Does the patient have a stroke diagnosis?: No VTE Prior VTE?: No VTE Risk Level:: Medical - low VTE Device Contraindication: N/A - Device Ordered VTE Drug Contraindication: N/A - Med Ordered
[2024-06-30 09:22] LABS: Hematocrit 35.3 % (37.0-47.0); Hemoglobin 12.4 g/dl (12.0-16.0); Mean Corpuscular HGB Conc 35.1 g/dl (31.0-35.0); Mean Corpuscular Hemoglobin 30.9 pg (27.0-33.0); Mean Platelet Volume 10.7 fL (9.4-12.3); Platelet Count 214 X10*3/uL (160-400); Red Blood Count 4.01 X10*6/uL (4.20-5.50); Red Cell Distribution Width 12.1 % (11.0-16.0); White Blood Count 11.3 X10*3/uL (4.8-10.8)
[2024-06-30 09:41] LABS: Alanine Aminotransferase 23 U/L (0-31); Albumin Level 3.9 g/dL (3.5-5.0); Alkaline Phosphatase 46 U/L (39-117); Anion Gap 9 (12-20); Aspartate Amino Transferase 18 U/L (5-31); Bilirubin Direct 0.3 mg/dL (0.0-0.5); Bilirubin Total 0.9 mg/dL (0.0-1.0); Blood Urea Nitrogen 8 mg/dL (9-16); Calcium 8.8 mg/dL (8.4-10.2); Carbon Dioxide 26 mmol/L (22-29); Chloride 108 mmol/L (96-108); Estimated Glomerular Filt Rate > 60; Glucose Random 136 mg/dL (60-115); Potassium 4.2 mmol/L (3.3-5.1); Sodium 139 mmol/L (135-145); Total Protein 6.3 g/dL (6.5-8.0)
--- NOTE | 2024-06-30 13:42 | MHC.CM.PN ---
IMM 06/30/24 Patient lives alone. Independent with all functional mobility. Patient receives assist with transport to appointments from [facility]. DP follow up with surgeon. A [facility] Patient is discharged today. Patient has arranged for transportation home.
--- NOTE | 2024-06-30 22:57 | P.DS_ITS ---
DS: Providers Provider Date of Service: 06/30/24 Date of admission: 06/29/24 14:09 Date of discharge: 06/30/24 Primary care physician: None Physician Attending physician on admission: Rufino Meyer Attending physician on discharge: Rufino Meyer DS: Diagnosis Discharge Diagnosis (1) Gallstone: Status: Acute DS: Summary Hospital Course Hospital Course: HPI AT ADMISSION: Chuck Mao is a 28 year old female (assigned male gender at ) here in the ER for abdominal pain. She says that around midnight last night, she had some pain in the epigastric area. This seemed to have persisted for several hours shows he she decided to come to the emergency room around 07:00 o'clock in the morning. She says that the pain has resolved he has not time however She had a CAT scan done showing a large gallstone with question of gallbladder wall thickening. She had a leukocytosis. She denies any similar episodes like this in the past. She does state that she has had some diffuse mild abdominal pain before. She denies any vomiting but did have some nausea. She denies any other GI complaints. The only medication she takes estradiol. HOSPITAL COURSE: She was admitted to the surgical service for further treatment of the biliary colic, question of early acute cholecystitis. She felt improved without any abdominal pain and expressed the desire to avoid surgical intervention. She was started on IV zosyn and clear liquids. It was discussed that if she has recurrence of pain it is recommended to proceed with laparoscopic cholecystectomy possible open. She understood. The following day she remained asymptomatic and was hemodynamically stable. Her abdomen was benign. Her leukocytosis improved. She was advanced to a solid diet. She was reassessed later in the day and was tolerating a solid diet without recurrence of abdominal pain, nausea or vomiting. She felt ready for discharge. She was discharged to home on 06/30/24 in stable condition on a PO course of Augmentin. She is to follow up in the office in 2 weeks. Status at Discharge Functional status at discharge: independent ambulation Overall status at discharge: patient is back to baseline Time Attestation Discharge Coordination Time (in mins): 30 Quality: Safe Use of Opioids Does Pt have an Active Cancer Diagnosis on the Problem List?: No Quality: Stroke Does the patient have a stroke diagnosis?: No Physical Exam Vital Signs: Vital Signs: Last Vital Signs Temp 98.2 F 06/30/24 07:19 Pulse 60 06/30/24 07:19 Resp 16 06/30/24 07:19 BP 110/67 06/30/24 07:19 Pulse Ox 100 06/30/24 07:19 O2 Del Method Room Air 06/30/24 07:19 BMI result Body Mass Index 23.3 Const: General: comfortable, no acute distress and alert Resp: Effort & Inspection: normal respiratory effort GI: Inspection: No distended Palpation (GI): Soft to palpation, nontender and no guarding Skin: General skin exam: no rashes or lesions noted and no jaundice DS: Data Data Completed and Pending Labs on day of discharge: Preliminary micro results at discharge 06/29/24 14:10 Blood Culture - Preliminary Blood - Venous No growth after 24 hours. 06/29/24 13:12 Blood Culture - Preliminary Blood - Venous No growth after 24 hours. Discharge Plan Discharge Anticipated Discharge Date/Time: 06/30/24 12:52 Patient Disposition: Home, Self-Care Discharge Diagnosis: gallstones Referrals: [facility] [Other] - 1 Week Maricruz Madsen PA [Physician Manager Of Compliance] - 07/16/24 3:45 pm (You have a new patient appointment scheduled. If you can not make this appointment call office to reschedule. ) Rufino Meyer MD [Physician] - 2 Weeks Discharge Medications: New amoxicillin-pot clavulanate 875-125 mg tablet 1 tab PO BID Qty: 12 0RF docusate sodium [Colace] 100 mg capsule 100 mg PO BID Qty: 30 0RF Continued estradiol valerate 20 mg/mL oil 5 mg IM FR acetaminophen [Tylenol] 325 mg Tablet 650 mg PO Q6H PRN (Reason: Migraine Headache) ibuprofen 200 mg Tablet 400 mg PO Q6H PRN (Reason: Migraine Headache) Discharge Orders: Discharge Order (Routine); Ordered 06/30/24 Ordered By: Carlie Joyce Diet: Low fat, low cholesterol Activity on Discharge: As tolerated Stand Alone Forms: Patient Portal Discharge page Print Language: Ukrainian Activity Restrictions/Additional Instructions: Follow up in office in 2 weeks. ([phone]) Call Your Doctor If: ? ? -Your temperature exceeds 101.5? F? ? ? -You experience excessive pain or swelling ? ? -You have an unexpected reaction to medication ? ? -You experience continued vomiting/nausea Care Plan Goals: Return to baseline health and resume normal activities. Health Concerns: gallstones Plan of Treatment: IV transitioned to PO abx low fat diet f/u in office in 2 weeks Assessment: Improved Patient Instructions: Low Fat Diet (DC) Discharge Date/Time: 06/30/24 14:17
== END 2024-06-30 14:17 | disposition home or self-care (01) | DRG 446 ==
LOC: HO.ED 13:53 → HO.EDOVER 14:15 → HO.S3 19:48
PROVIDERS: Admitting Provider Surgery; Emergency Provider Emergency Medicine; Visit Provider Surgery
DX: K80.20 Calculus of gallbladder without cholecystitis without obstruction (principal); F64.0 Transsexualism; Z79.899 Other long term (current) drug therapy
CPT/HCPCS: 36415; 74176; 76705; 80048; 80076; 80307; 81001; 81025; 82272; 83690; 84484; 85025; 85027; 87040; 87086; 93005; 99285; J2405; J2543; J7120

== ENCOUNTER → 2024-06-29 14:09 | Outpatient (BNV) | payer OTHER, SELFPAY | PROVIDERS: Admitting Provider Surgery; Emergency Provider Emergency Medicine; Visit Provider Surgery | DX: K80.20 Calculus of gallbladder without cholecystitis without obstruction (principal) | CPT/HCPCS: 99222; 99238; 99499 ==

== ENCOUNTER 2024-07-22 10:17 | Outpatient (AMB) | payer OTHER, SELFPAY ==
--- NOTE | 2024-07-22 10:37 | A.OFFVIS_ITS ---
Vital Signs 07/22/24 10:42 Height 5 ft 7 in Weight 150 lb BMI 23.5 BP 120/68 Blood Pressure Location Lt brachial Position Sitting Pulse 79 Intake Visit Reasons: Hospital follow-up gallstones Intake Note: Patient presents Hospital follow-up gallstones. Pt c/o; admits to nausea, sharp pain in RUQ radiates to the back, blood in stool, straining on and off couple yrs, all done with antbx Abd US/ Abd pelvis Ct: 06/29/2024 Screen Examiner Required: No Accompanied by: Self / Same As Patient Allergies pollen extracts Allergy (Mild, Verified 07/22/24 10:50) Unknown Medication List - Last Reconciled 07/23/24 by Rufino Meyer MD acetaminophen (Tylenol) 650 mg PO Q6H PRN amoxicillin-pot clavulanate 875-125 mg 1 tab PO BID docusate sodium (Colace) 100 mg PO BID estradiol valerate 5 mg IM FR ibuprofen 400 mg PO Q6H PRN HPI HPI Hospital follow-up gallstones: Details: 29-year-old female, assigned male gender on , here for follow-up for gallstones. She was admitted to the hospital on 06/30/2024 for right upper quadrant pain. She was noted to have a gallstones on imaging studies with question of cholecystitis. She improved right after admission and was asymptomatic the following day so she wanted to be discharged instead of having inpatient cholecystectomy She says she been doing well and denies significant right upper quadrant pain. She has good oral intake. [facility] Medical History Gallstone Social History Household Members: None Housing: Apartment Do you presently have visiting nurse or other home services: No Patient Tobacco Use Status: Never used Tobacco Substance Use Type: Marijuana service: No Review of Systems Const Denies chills and Denies fever(s) Card Denies chest pain, Denies dyspnea and Denies dyspnea on exertion Resp Denies cough, Denies dyspnea and Denies dyspnea on exertion GI Denies hematochezia and Denies change in bowel habits Denies hematuria Musc Denies back pain and Denies limited range of motion Neuro Denies focal weakness and Denies convulsions Psych Denies depression and Denies mood swings Physical Exam Vital Signs: Last Vital Signs Pulse 79 07/22/24 10:42 BP 120/68 07/22/24 10:42 BMI result Body Mass Index 23.5 Const General: comfortable and no acute distress Orientation/consciousness: patient oriented x3 Neck Neck: Yes no lymphadenopathy Resp Auscultation: clear to auscultation bilaterally Cardio Rhythm: regular rhythm GI Palpation (GI): Soft to palpation, nontender and no guarding Neuro General: patient oriented x3 Assessment & Plan Assessment & Plan (1) Gallstone: Code(s): K80.20 - Calculus of gallbladder without cholecystitis without obstruction Category: Medical Plan: She has known gallstones and had been admitted briefly for right upper quadrant pain In view of symptoms, I have reviewed with her the option of proceeding with cholecystectomy. I explained the technique of laparoscopic cholecystectomy and possible open cholecystectomy. I reviewed the risks including but not limited to bleeding, infections, bowel injury, injury to other organs including liver and the bile ducts, bile leak, retained stones, inherent risks of anesthesia as well as the benefits and alternatives. I explained to him what to expect postoperatively She says she wants to proceed with cholecystectomy. Coding Level of Care Code Est Pt Level 3 (64098) Diagnoses Gallstone K80.20
[2024-07-22 10:42] VITALS: BP 120/68; PULSE 79; BMI 23.5
== END 2024-07-22 11:55 | disposition home or self-care (01) ==
PROVIDERS: PCP Physician Assistant Medical; Visit Provider Surgery
DX: K80.20 Calculus of gallbladder without cholecystitis without obstruction (principal)
CPT/HCPCS: 99213

== ENCOUNTER → 2024-07-22 10:17 | Outpatient (BNVA) | payer OTHER, SELFPAY | PROVIDERS: PCP Physician Assistant Medical; Visit Provider Surgery | DX: K80.20 Calculus of gallbladder without cholecystitis without obstruction (principal) | CPT/HCPCS: 99212 ==

== ENCOUNTER 2024-08-03 10:11 | Outpatient (AMB) | payer OTHER, SELFPAY ==
--- NOTE | 2024-08-03 10:17 | MHC.PC.OV ---
Vital Signs 08/03/24 10:24 Height 5 ft 4.17 in Weight 140 lb 6 oz BMI 24.0 BP 114/84 Blood Pressure Location Lt brachial Position Sitting Respiration 12 Pulse 84 Pulse Source Pulse Oximeter Pulse Oximetry (%) 98 Oxygen Delivery Method Room Air Intake Visit Reasons: new patient fu hdf Intake Note: New patient visit [employer] Required: No Allergies pollen extracts Allergy (Mild, Verified 08/03/24 10:18) Unknown Tobacco use date assessed: 08/03/24 Dental Screening Dental Screen Date: 08/03/24 Did you have a dental visit in the last 12 months?: No Did you have a dental problem in the last 6 months where you did not have access to dental care?: Yes Was dental information given to patient?: Yes HPI HPI Comments History of Present Illness Details This is a 29-year-old transgender female presenting to [facility]. Patient's last PCP was [facility]. Preferred pronouns are she/her. Patient was admitted for cholecystitis in June. Treated with antibiotics. The patient saw Dr. Meyer on 07/22/2024 to follow up. Laparoscopic cholecystectomy scheduled mid-August. She endorses IBS like symptoms for 11 years. Bloating, 2-3 BMs if at home, if she is out she feels like she has to go more often than this. More often than not she has diarrhea and sometimes will pass small pellets. No recent blood in stools, but she has had blood in stools which prompted an evaluation with a pipeline dispatch operator. She does not remember where she was seen. Denies family history of colon cancer. Rectal exam 06/29/2024 normal. She was scheduled for a colonoscopy a year ago, and she was given the prep, but ultimately there was an insurance issue, and it did not get done. Patient seen by [facility] for urinary retention and slow urinary stream. She was given medication for this. She does not remember the name of it. Symptoms began 3-4 years ago. No blood in urine. She has a therapist for PTSD, major depression, NATANAEL. Patient says she has additional diagnoses that she does not feel are medically relevant and is not comfortable sharing. She says that she is estranged from her family. She endorses memory issues and concentration problems related to mental health. She questions if she has ADHD and would like a psychiatric evaluation. Patient tried Zoloft and Wellbutrin in the past which were not effective. Dr. Baker from [facility] prescribes estradiol injections. She has chronic migraines, chronic lower back pains, chronic bilateral shoulder pains. Endorses intermittent weakness of the left leg. Patient says when she turns quickly to the left sometimes the left leg feels like it gives out. No numbness or tingling in the legs. No loss of bowel or bladder control. Patient has not had imaging of the lower back. Denies family history of autoimmune disease. Endorses chronic nasal congestion and postnasal drip. Patient has not seen partner cco. ROS: Constitutional: No fevers or chills. No weight loss. Respiratory: No cough Cardiovascular: No chest pain Gastrointestinal: see HPI Genitourinary: No dysuria, hematuria, urinary frequency. Neurologic: No dizziness, syncope, ataxia, numbness or tingling in the extremities. Hematologic/Lymphatics: No bleeding or bruising. Skin: No rash Psychiatric: No SI/HI. Physical exam: Constitutional: Alert, in no distress. Neck: Supple, Full range of motion. No lymphadenopathy. No palpable thyroid masses. Respiratory: Clear to auscultation. Cardiovascular: S1 S2 regular. No murmurs. Gastrointestinal: Abdomen soft, non-tender, non-distended. Normal bowel sounds. No palpable masses. Neurologic: No focal neurological deficits. Symmetric patellar reflexes. Moves all extremities spontaneously. Sensation intact bilaterally Musculoskeletal: Full range of motion of the lumbosacral spine. No midline spinal tenderness. Normal gait. Lower extremity strength 5/5 bilaterally. Extremities: Warm and well perfused. No clubbing, cyanosis or edema Psychiatric: Normal mood and affect COUNTS INCLUDE 234 BEDS AT THE [facility] Medical History (Updated 08/04/24 @ 08:35 by TAY Decker) Memory difficulty Migraines Chronic allergic rhinitis Low back pain Multiple joint pain Bloating Alternating constipation and diarrhea PTSD (post-traumatic stress disorder) Memory loss Headache Depression Anxiety Imbalance GERD (gastroesophageal reflux disease) IBS (irritable bowel syndrome) Gallstone Family History (Updated 08/03/24 @ 11:05 by Tennille Hutchison CMA) Father Substance use Alcoholism Mother Thyroid disorder Other FH: mental illness Social History (Updated 08/03/24 @ 10:22 by Tennille Hutchison CMA) Household Members: None Housing: Apartment Do you presently have visiting nurse or other home services: No Patient Tobacco Use Status: Former Tobacco user (5 in life span, not cigarettes in 10 years) e-Cigarette/Vaping Use: Never Used Second Hand Smoke Exposure: No Substance Use Type: Marijuana service: No Current occupational status: disabled Cognitive needs: No Hearing needs: No Vision needs: Yes (glasses) Questionnaire PHQ-9 Over the last 2 weeks, how often have you been bothered by any of the following problems? 1. Little interest or pleasure in doing things: several days 2. Feeling down, depressed, or hopeless: several days 3. Trouble falling or staying asleep, or sleeping too much: more than half the days 4. Feeling tired or having little energy: nearly every day 5. Poor appetite or overeating: nearly every day 6. Feeling bad about yourself - or that you are a failure or have let yourself or your family down: more than half the days 7. Trouble concentrating on things, such as reading the newspaper or watching television: nearly every day 8. Moving or speaking so slowly that other people could have noticed. Or the opposite - being so fidgety or restless that you have been moving around a lot more than usual: more than half the days 9. Thoughts that you would be better off or of hurting yourself in some way: not at all Total score: 17 Depression Screening Interpretation: Positive Depression Screening Follow-up: Existing condition and In treatment Depression Screening Done: Yes 18885 - PHQ-9 Billing: Yes Source: Developed by Drs. Todd Packer, Griselda Rao, Honorio Lebron and colleagues, with an educational tali from [employer]. Thrive Questionnaire Date Thrive assessed: 08/03/24 What is your living situation today?: I have a steady place to live Within the past 12 months, did the food you bought not last and you didn't have the money to get more?: Often true Within the past 12 months, did you worry whether your food would run out before you got money to buy more?: Often true Do you have trouble paying for medicines?: No Do you have trouble getting transportation to medical appointments?: No Do you have trouble paying your heating and electricity bill?: Yes Do you have trouble taking care of your child, family member or friend?: No Do you have trouble with day-to-day activities such as bathing, preparing meals, shopping, managing finances, etc.?: Yes Are you currently unemployed and looking for a job?: Yes Are you interested in more education?: Yes Please select the resources that you would like help with: None Currently or been in a relationship where the following occur: No concerns reported THRIVE Score: 3 AUDIT C Alcohol Use Questionnaire (AUDIT-C) 1. How often do you have a drink containing alcohol?: Never 3. How often do you have six or more drinks on one occasion?: Never Total Score: 0 NATANAEL-7 AMB Questionnaire NATANAEL-7 Date NATANAEL - 7 assessed: 08/03/24 Feeling nervous, anxious, or on edge: 1 = Several days Not being able to stop or control worryin = Several days Worrying too much about different things: 1 = Several days Trouble relaxin = Several days Being so restless that it is hard to sit still: 1 = Several days Becoming easily annoyed or irritable: 1 = Several days Feeling afraid as if something awful might happen: 2 = More than half the days Total NATANAEL-7 score (0-4 normal; 5-9 mild; 10-14 moderate; 15-21 severe): 8 Source: Developed by Drs. Todd Packer, Griselda Rao, Honorio Lebron and colleagues, with an educational tali from [employer]. NATANAEL-7 Assessment Billing NATANAEL-7 Assessment Tool: NATANAEL-7 Assessment 26670 Physical exam (Primary Care) Vital Signs: Last Vital Signs Pulse 84 08/03/24 10:24 Resp 12 08/03/24 10:24 BP 114/84 08/03/24 10:24 Pulse Ox 98 08/03/24 10:24 Oxygen Delivery Method Room Air 08/03/24 10:24 BMI result Body Mass Index 24.0 Tobacco/Smoking Status: Tobacco use Status Tobacco use date assessed 08/03/24 08/03/24 10:20 Patient Tobacco Use Status Former Tobacco user (5 in 08/03/24 10:22 life span, not cigarettes in 10 years) e-Cigarette/Vaping Use Never Used 08/03/24 10:22 PHQ-9: PHQ-9 Score PHQ-9: Total score 17 08/03/24 17:34 Depression Screening Interpretation: Positive Depression Screening Follow-up: Existing condition and In treatment Thrive Assessment: Date of Thrive Assessment Date Thrive assessed 08/03/24 08/03/24 11:08 Currently or been in a relationship where the following occur: No concerns reported Assessment and Plan Assessment & Plan (1) Gallstone: Code(s): K80.20 - Calculus of gallbladder without cholecystitis without obstruction Plan: Patient is scheduled for elective laparoscopic cholecystectomy. Patient does express some anxiety about potential long-term effects of the surgery. I encouraged the patient to reach out to the surgeon's office to discuss further. (2) Alternating constipation and diarrhea: Code(s): R19.8 - Other specified symptoms and signs involving the digestive system and abdomen Plan: Patient referred to Gastroenterology for evaluation. (3) Bloating: Code(s): R14.0 - Abdominal distension (gaseous) Plan: Patient can try liquids from meals by 30 minutes to see if this reduces bloating. Patient can try a low FODMAP diet. Patient is referred to Gastroenterology. Trial of simethicone prescribed. (4) Multiple joint pain: Code(s): M25.50 - Pain in unspecified joint Plan: Patient will need to return for further evaluation. Screening labs ordered. (5) Low back pain: Code(s): M54.50 - Low back pain, unspecified Plan: Patient will need to return for further evaluation. Screening labs and x-ray ordered. (6) Chronic allergic rhinitis: Code(s): J30.9 - Allergic rhinitis, unspecified Plan: Refer to Allergy and immunology. (7) Memory difficulty: Comment: Psychiatric Code(s): R41.3 - Other amnesia Plan: Per patient this is related to mental health. Patient has a therapist. Refer to psychiatrist for evaluation. (8) Depression: Code(s): F32.A - Depression, unspecified Plan: Managed by therapist. (9) Anxiety: Code(s): F41.9 - Anxiety disorder, unspecified Plan Follow up in 6 weeks for re-evaluation. Orders: Orders Lipid Panel 08/03/24 M25.50 - Pain in unspecified joint Rheumatoid Factor 08/03/24 M25.50 - Pain in unspecified joint Erythrocyte Sedimentation Rate 08/03/24 M25.50 - Pain in unspecified joint TSH reflex Free T4 08/03/24 M25.50 - Pain in unspecified joint Complete Blood Count no Diff 08/03/24 M25.50 - Pain in unspecified joint XR lumbar spine 2-3V 08/03/24 M54.50 - Low back pain, unspecified SAVANA Reflex Titer and Pattern 08/03/24 M25.50 - Pain in unspecified joint Lyme IgG/IgM w/reflex to WB 08/03/24 M25.50 - Pain in unspecified joint Referrals Psychiatry Referral R41.840 - Attention and concentration deficit Allergy & Immunology Referral J30.9 - Allergic rhinitis, unspecified Gastroenterology Referral R14.0 - Abdominal distension (gaseous), R19.8 - Other specified symptoms and signs involving the digestive system and abdomen Coding Level of Care Code New Pt Level 5 (25692) Complex EM visit Add On G2211 Diagnoses Gallstone K80.20 Alternating constipation and diarrhea R19.8 Bloating R14.0 Multiple joint pain M25.50 Low back pain M54.50 Chronic allergic rhinitis J30.9 Memory difficulty R41.3 Depression F32.A Anxiety F41.9 Additional Codes NATANAEL-7 Assessment Billing - NATANAEL-7 Assessment Tool: NATANAEL-7 Assessment 18949 ([id number]) Time Spent (min) 60 Comment Reviewing chart, direct patient care, completing documentation
[2024-08-03 10:24] VITALS: BP 114/84; PULSE 84; RESP 12; O2SAT 98; BMI 24.0
== END 2024-08-03 11:29 | disposition home or self-care (01) ==
PROVIDERS: PCP Physician Assistant Medical; Visit Provider Physician Assistant Medical
DX: K80.20 Calculus of gallbladder without cholecystitis without obstruction (principal); R19.8 Other specified symptoms and signs involving the digestive system and abdomen; R14.0 Abdominal distension (gaseous); M25.50 Pain in unspecified joint; M54.50 Low back pain, unspecified; J30.9 Allergic rhinitis, unspecified; R41.3 Other amnesia; F32.A Depression, unspecified; F41.9 Anxiety disorder, unspecified

== ENCOUNTER → 2024-08-03 10:11 | Outpatient (BNVA) | payer OTHER, SELFPAY | PROVIDERS: PCP Physician Assistant Medical; Visit Provider Physician Assistant Medical | DX: K80.20 Calculus of gallbladder without cholecystitis without obstruction (principal); R19.8 Other specified symptoms and signs involving the digestive system and abdomen; R14.0 Abdominal distension (gaseous); M25.50 Pain in unspecified joint; M54.50 Low back pain, unspecified; J30.9 Allergic rhinitis, unspecified; R41.3 Other amnesia; F32.A Depression, unspecified; F41.9 Anxiety disorder, unspecified; F43.10 Post-traumatic stress disorder, unspecified | CPT/HCPCS: 96127; 99202 ==

== ENCOUNTER 2024-08-03 11:34 | Outpatient (REF) | payer OTHER, SELFPAY ==
[2024-08-03 15:29] LABS: Hematocrit 41.1 % (37.0-47.0); Hemoglobin 14.1 g/dl (12.0-16.0); Mean Corpuscular HGB Conc 34.3 g/dl (31.0-35.0); Mean Corpuscular Hemoglobin 30.1 pg (27.0-33.0); Mean Corpuscular Volume 87.6 fL (80.0-98.0); Mean Platelet Volume 11.6 fL (9.4-12.3); Platelet Count 259 X10*3/uL (160-400); Red Blood Count 4.69 X10*6/uL (4.20-5.50); Red Cell Distribution Width 12.1 % (11.0-16.0); White Blood Count 12.6 X10*3/uL (4.8-10.8)
[2024-08-03 15:58] LABS: Rheumatoid Factor < 13.0 IU/mL (<15.0)
[2024-08-03 16:02] LABS: Erythrocyte Sedimentation Rate 6 MM/HR (0-20)
[2024-08-03 16:13] LABS: TSH reflex Free T4 4.09 uIU/mL (0.32-4.0)
[2024-08-03 16:14] LABS: Cholesterol 221 mg/dL (<200); HDL Cholesterol 42 mg/dL (>40); LDL Cholesterol Calculated 149 mg/dL (<100); Triglycerides 152 mg/dL (<150)
[2024-08-03 16:50] LABS: Free T4 (Free Thyroxine) 0.99 ng/dL (0.71-1.85)
[2024-08-04 17:39] LABS: Lyme Abs Screen <0.90 index
[2024-08-05 11:57] LABS: Anti Nuclear Antibody Screen NEGATIVE (NEGATIVE)
== END 2024-08-03 11:35 | disposition home or self-care (01) ==
LOC: HO.WFDLDS 11:34
PROVIDERS: Visit Provider Physician Assistant Medical
DX: M25.50 Pain in unspecified joint (principal)
CPT/HCPCS: 36415; 80061; 84439; 84443; 85027; 85652; 86038; 86431; 86617; 86618

== ENCOUNTER 2024-08-18 05:42 | Day surgery (SDC) | payer OTHER, SELFPAY ==
--- NOTE | 2024-08-14 13:46 | HO.ANESPROP2 ---
Documented by User: Smita Bradford NP 08/17/24 13:31 HPI - Anesthesia Eval Consult details Narrative: *Aracelis - she/her* (M to F - No HCG) 29yo F for Cholecystectomy Laparoscopic, possible open PMFSH Active Problems Active Problems: All Active Problems Abnormal TSH (Acute) Anxiety (Acute) Depression (Acute) PTSD (post-traumatic stress disorder) (Acute) Memory difficulty (Acute) Migraines (Acute) Chronic allergic rhinitis (Acute) Low back pain (Acute) Multiple joint pain (Acute) Bloating (Acute) Alternating constipation and diarrhea (Acute) Gallstone (Acute) Acute cholecystitis (Acute) Past Medical History Medical History Abnormal TSH Memory difficulty Migraines Chronic allergic rhinitis Low back pain Multiple joint pain Bloating Alternating constipation and diarrhea PTSD (post-traumatic stress disorder) Memory loss Headache Depression Anxiety Imbalance GERD (gastroesophageal reflux disease) IBS (irritable bowel syndrome) Gallstone Family History Family History (Updated 08/03/24 @ 11:05 by Tennille Hutchison CMA) Father Substance use Alcoholism Mother Thyroid disorder Other FH: mental illness Surgical History Surgical History (Updated 08/18/24 @ 06:44 by Anjali Ponce RN) No pertinent past surgical history Social History Social History (Updated 08/03/24 @ 10:22 by Tennille Hutchison CMA) Household Members: None Housing: Apartment Do you presently have visiting nurse or other home services: No Patient Tobacco Use Status: Never used Tobacco e-Cigarette/Vaping Use: Never Used Second Hand Smoke Exposure: No Use of substances other than those prescribed or required for medical reasons: Yes Substance Use Type: Marijuana Substance Use Type Other:: last used 08/17 Substance Use Frequency: Daily Are you DNR?: No Advance Directives: No Advance Directives Information Provided: Yes Recently lost weight without trying: Yes How much weight loss: 2-13 pounds service: No Current occupational status: disabled Cognitive needs: No Hearing needs: No Vision needs: Yes (glasses) Meds Allergies Allergy/AdvReac Type Severity Reaction Status Date / Time pollen extracts Allergy Mild Unknown Verified 08/18/24 06:44 Home Medications ?Medication ?Instructions ?Recorded ?Confirmed ?Last Taken ?Type acetaminophen 325 mg tablet 650 mg PO Q6H PRN Migraine Headache 06/29/24 07/23/24 Unknown History (Tylenol) estradiol valerate 20 mg/mL 5 mg IM FR 06/29/24 07/23/24 06/26/24 08:00 History intramuscular oil ibuprofen 200 mg tablet 400 mg PO Q6H PRN Migraine Headache 06/29/24 07/23/24 Unknown History albuterol sulfate 90 mcg/actuation inhalation 08/18/24 08/18/24 Unknown History aerosol inhaler Exam Pertinent Lab Results Pertinent Lab Results: Laboratory Tests 06/30/24 08/03/24 09:11 11:37 WBC 12.6 H Hgb 14.1 Hct 41.1 Plt Count 259 Sodium 139 Potassium 4.2 Chloride 108 Carbon Dioxide 26 BUN 8 L Creatinine 0.86 Assessment and Plan Assessment Anesthesia Assessment: Chart Reviewed Documented by User: Anup Phan MD 08/18/24 07:32 [facility] Past Medical History Medical History Abnormal TSH Memory difficulty Migraines Chronic allergic rhinitis Low back pain Multiple joint pain Bloating Alternating constipation and diarrhea PTSD (post-traumatic stress disorder) Memory loss Headache Depression Anxiety Imbalance GERD (gastroesophageal reflux disease) IBS (irritable bowel syndrome) Gallstone Patient : No Family History Family History (Updated 08/03/24 @ 11:05 by Tennille Hutchison CMA) Father Substance use Alcoholism Mother Thyroid disorder Other FH: mental illness Family history of problems with anesthesia: No Surgical History Surgical History (Updated 08/18/24 @ 06:44 by Anjali Ponce RN) No pertinent past surgical history History of Problems with Anesthesia: No Social History Social History (Updated 08/03/24 @ 10:22 by Tennille Hutchison CMA) Household Members: None Housing: Apartment Do you presently have visiting nurse or other home services: No Patient Tobacco Use Status: Never used Tobacco e-Cigarette/Vaping Use: Never Used Second Hand Smoke Exposure: No Use of substances other than those prescribed or required for medical reasons: Yes Substance Use Type: Marijuana Substance Use Type Other:: last used 08/17 Substance Use Frequency: Daily Are you DNR?: No Advance Directives: No Advance Directives Information Provided: Yes Recently lost weight without trying: Yes How much weight loss: 2-13 pounds service: No Current occupational status: disabled Cognitive needs: No Hearing needs: No Vision needs: Yes (glasses) Meds Allergies Allergy/AdvReac Type Severity Reaction Status Date / Time pollen extracts Allergy Mild Unknown Verified 08/18/24 06:44 Home Medications ?Medication ?Instructions ?Recorded ?Confirmed ?Last Taken ?Type acetaminophen 325 mg tablet 650 mg PO Q6H PRN Migraine Headache 06/29/24 07/23/24 Unknown History (Tylenol) estradiol valerate 20 mg/mL 5 mg IM FR 06/29/24 07/23/24 06/26/24 08:00 History intramuscular oil ibuprofen 200 mg tablet 400 mg PO Q6H PRN Migraine Headache 06/29/24 07/23/24 Unknown History albuterol sulfate 90 mcg/actuation inhalation 08/18/24 08/18/24 Unknown History aerosol inhaler Exam Airway Mallampati Class: I TM Dist: >3cm Neck ROM: Full Loose/Missing/Broken Teeth: No Heart: ok Lungs: ok Assessment and Plan Assessment Anesthesia Assessment: Anesthesia Plan Discussed Final Anesthetic Review Family History of Problems with Anesthesia: No History of Problems with Anesthesia: No NPO: Yes ASA Class: II Final Preanesthetic Review: No Changes in Pt Med Stat, Meds/Allgs Chart Reviewed, Consent Obtained/Reviewed and Anes Risks/Benef Reviewed Patient Risk: Low Procedure Risk: Intermediate Anesthetic Plan Anesthetic Plan: GA, MAC: and Agree w/ Assess. and Plan Disposition: Standard PACU
[2024-08-14 14:35] VITALS: BMI 23.5
[2024-08-18] VITALS (8 sets, daily range): BP systolic 112–141; BP diastolic 68–87; PULSE 46–76; RESP 15–18; TEMP 36.1–36.7; O2SAT 94–100; BMI 24.5
[2024-08-18] MEDS: Lactated Ringers 1,000 ML 100 ML IVCONT (06:43)
--- NOTE | 2024-08-18 07:20 | MHC.SHP ---
Pre-Procedural Eval Section A - 24 Hr Update-Section A only Date of Service: 08/18/24 The patient is an INPATIENT: No Changes since office visit: No Cold of Flu in the past 2 weeks, No New Medical Problems, No Changes in Medication and No Patient answered all questions The patient has been examined within 24 hours of the surgical procedure. The History & Physical has been completed within 30 days and I have reviewed it.: Yes Section B - Complete if H&P > 30 days Chief Complaint: Calculus of gallbladder without cholecystitis with Allergies: Allergies Allergy/AdvReac Type Severity Reaction Status Date / Time pollen extracts Allergy Mild Unknown Verified 08/18/24 06:44 Plan I have reviewed the history and physical and performed a pertinent physical examination on my patient. No changes have occurred unless specified. Time Spent With Patient Time: Total time managing care of this patient today ____ minutes.
--- NOTE | 2024-08-18 08:21 | P.OP_ITS ---
Operative Note Operative Note Date of Service: 08/18/24 Narrative: Preop diagnosis: Gallstones, with recent acute cholecystitis Postop diagnosis: The same Procedure: Laparoscopic cholecystectomy Surgeon: Rufino Meyer MD temporary office assistant: TAY Joyce The patient is a 29 year old female, previously admitted for gallstones with question of cholecystitis in June,. I had seen her on a follow up in the office and discuss the option of proceeding with cholecystectomy because of her gallstones. She understood the technique of the planned procedure as well as the risks, benefits, and alternatives and wanted to proceed She was brought to the operating room. She was placed supine under general anesthesia via endotracheal tube. The abdomen was prepped and draped in the usual sterile fashion. A surgical time-out was done. The patient received Cefotan 2 g IV preoperatively I made a short incision on the supraumbilical margin using blade 15. This was carried down through the full-thickness of the skin and subcutaneous fat down to the fascia. The fascia was incised. The peritoneum was entered. Through this incision a Perez port was introduced. The peritoneum was introduced to a pressure of 15 mm Hg. From here on the rest of procedure was done under vision with the 10 mm 0 degree laparoscope. With laparoscopic visualization I inserted a 5/12 mm port in the epigastric area below the subcostal margin. Two 5 mm ports introduced a small incision below the subcostal margin along the anterior axillary line and the midclavicular line. Graspers were placed through this working ports. The patient was placed in head up and [id number] position. He was able to apply a grasper at the fundus of the gallbladder to retract this cephalad. There was note of adhesions on the anterior wall of the gallbladder so I had to carefully dissect this with the [place] dissector until I was able to completely expose the entire gallbladder. I was able to apply another grasper towards the pouch of the gallbladder and this was used to retract the gallbladder laterally. At this point, the gallbladder was retracted cephalad and lateral fashion to put the area of the cystic duct on stretch. I carefully dissected the neck of the gallbladder until was able to clearly visualize the cystic duct. I was able to also clearly see the cystic artery. I dissected both of these and confirmed the direction of both of these structures as leading into the gallbladder. There were no other structures in the area that appeared to be ductal or tubular. I was therefore able to achieve a critical view of the hepatocystic triangle With confirmation of the neck of the gallbladder with the cystic duct achieved, I applied clips on the cystic duct with 2 clips being applied distally in the cystic duct was transected between clips with Endo scissors. I applied clips on the cystic artery as well in the same fashion and this was retracted with the clips with Endo scissors With traction on the gallbladder away from the liver bed, I proceeded to then divide across the hilum using electrocautery spatula until I reached the interface of the gallbladder wall and the liver bed. I used a combination of blunt dissection with the tip of the spatula as well as sharp dissection with electrocautery to define a plane of dissection between the gallbladder wall and the liver bed. I the gallbladder along this well-defined plane all the way to the fundus until the entire gallbladder was completely . The gallbladder was retrieved through an endobag through the umbilical incision. I reinserted all ports and re-insufflated. I examined the area of dissection. This appeared to be hemostatic. I examined all 4 quadrants and there was no other pathology or any evidence of any bowel injury seen. I irrigated little bit and suctioned the irrigant fluid I then desufflated the port sites. I removed all ports under vision with the laparoscope. The umbilical port was removed last. The fascia of the umbilical incision was closed with [id number] Polysorb 0 stitch. Skin closure was achieved on all incisions using Polysorb 4-0 subcuticular running sutures. Steri-Strips and dressings were applied All incisions were infiltrated Marcaine 0.5% for postop analgesia and the procedure was completed The patient tolerated the procedure well. There were no immediate complications. Initial and final counts of sponges and instruments were correct. Estimated blood loss was less than 20 cc The patient was extubated without difficulty and transferred to the recovery room with stable vital signs..
[2024-08-18] MEDS: Acetaminophen 325 MG TABLET 650 MG PO (08:45)
[2024-08-18] MEDS: oxyCODONE HCl Immed Release 5 MG TABLET PO (08:50)
== END 2024-08-18 10:33 | disposition home or self-care (01) ==
PROVIDERS: PCP Physician Assistant Medical; Visit Provider Surgery
PROC: 0FT44ZZ Resection of Gallbladder, Percutaneous Endoscopic Approach (ICD-10-PCS; CPT 47562; principal; 2024-08-18 07:30)
DX: K80.10 Calculus of gallbladder with chronic cholecystitis without obstruction (principal); K82.8 Other specified diseases of gallbladder; K21.9 Gastro-esophageal reflux disease without esophagitis; K58.2 Mixed irritable bowel syndrome; R41.3 Other amnesia; F43.10 Post-traumatic stress disorder, unspecified; M54.50 Low back pain, unspecified; J30.89 Other allergic rhinitis; Z79.899 Other long term (current) drug therapy; Z79.810 Long term (current) use of selective estrogen receptor modulators (SERMs); Z79.1 Long term (current) use of non-steroidal anti-inflammatories (NSAID)
CPT/HCPCS: 47562; 88304; J1885; J2003; J2405; J2704; J2795; J3010

== ENCOUNTER → 2024-08-18 05:42 | Outpatient (BNV) | payer OTHER, SELFPAY | PROVIDERS: PCP Physician Assistant Medical; Visit Provider Surgery | DX: K80.20 Calculus of gallbladder without cholecystitis without obstruction (principal); K56.3 Gallstone ileus | CPT/HCPCS: 47562 ==

== ENCOUNTER 2024-08-31 10:24 | Outpatient (AMB) | payer OTHER, SELFPAY ==
--- NOTE | 2024-08-31 10:28 | MHC.OFFVIS ---
Vital Signs 08/31/24 10:35 Height 5 ft 4 in Weight 140 lb BMI 24.0 BP 122/62 Blood Pressure Location Lt brachial Position Sitting Pulse 94 Intake Visit Reasons: s/p lap bruce Intake Note: This patient presents for post-op assessment status post laparoscopic cholecystectomy. 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 She tolerated procedure well. She currently denies significant complaints. [facility], LATER [facility] Medical History Abnormal TSH Memory difficulty Migraines Chronic allergic rhinitis Low back pain Multiple joint pain Bloating Alternating constipation and diarrhea PTSD (post-traumatic stress disorder) Memory loss Headache Depression Anxiety Imbalance GERD (gastroesophageal reflux disease) IBS (irritable bowel syndrome) Gallstone Surgical History (Updated 08/31/24 @ 12:43 by Rufino Meyer MD) Status post laparoscopic cholecystectomy History of laparoscopic cholecystectomy (~08/18/24) No pertinent past surgical history Family History Father Substance use Alcoholism Mother Thyroid disorder Other FH: mental illness Social History Household Members: None Housing: Apartment Do you presently have visiting nurse or other home services: No Patient Tobacco Use Status: Never used Tobacco e-Cigarette/Vaping Use: Never Used Second Hand Smoke Exposure: No Substance Use Type: Marijuana service: No Current occupational status: disabled Cognitive needs: No Hearing needs: No Vision needs: Yes (glasses) Review of Systems Const Denies chills and Denies fever(s) Card Denies chest pain Resp Denies cough GI Denies vomiting Physical Exam Vital Signs: Last Vital Signs Pulse 94 08/31/24 10:35 BP 122/62 08/31/24 10:35 BMI result Body Mass Index 24.0 Const General: comfortable and no acute distress Eyes Other: Sclerae anicteric GI Other: All incisions well healed, not infected Palpation (GI): Soft to palpation, not firm, nontender and no guarding Assessment & Plan Assessment & Plan (1) Status post laparoscopic cholecystectomy: Code(s): Z90.49 - Acquired absence of other specified parts of digestive tract Category: Surgical Plan: She is doing well postoperatively. Her path report shows gallstones and chronic cholecystitis All incisions are well healed. I advised her to avoid lifting anything more than 20 lb for at least 2 more weeks. She can follow up on a p.r.n. basis. Coding Level of Care Code Global (92275) Diagnoses Status post laparoscopic cholecystectomy Z90.49
[2024-08-31 10:35] VITALS: BP 122/62; PULSE 94; BMI 24.0
== END 2024-08-31 10:41 | disposition home or self-care (01) ==
PROVIDERS: PCP Physician Assistant Medical; Visit Provider Surgery
DX: Z90.49 Acquired absence of other specified parts of digestive tract (principal)
CPT/HCPCS: 99024

== ENCOUNTER → 2024-08-31 10:24 | Outpatient (BNVA) | payer OTHER, SELFPAY | PROVIDERS: PCP Physician Assistant Medical; Visit Provider Surgery | DX: Z90.49 Acquired absence of other specified parts of digestive tract (principal) | CPT/HCPCS: 99212 ==

== ENCOUNTER 2024-09-14 10:15 | Outpatient (AMB) | payer OTHER, SELFPAY ==
--- NOTE | 2024-09-14 10:33 | MHC.PC.OV ---
Vital Signs 09/14/24 10:37 Height 5 ft 4 in BP 96/64 Blood Pressure Location Lt brachial Position Sitting Pulse 71 Pulse Source Pulse Oximeter Pulse Oximetry (%) 99 Oxygen Delivery Method Room Air Intake Visit Reasons: 30 minutes multiple issues follow up Intake Note: Follow up Gis Coordinator Required: No Allergies pollen extracts Allergy (Mild, Verified 09/14/24 10:34) Unknown Tobacco use date assessed: 08/03/24 Dental Screening Dental Screen Date: 08/03/24 HPI HPI Comments History of Present Illness Details This is a 29-year-old transgender female presenting for follow up. Preferred pronouns are she/her. Patient works in software development. She had laparoscopic cholecystectomy in August. The recovery is going well. She is in the process of referral to Gastroenterology for IBS like symptoms for the past 11 years which we previously discussed. She endorses IBS like symptoms for 11 years. Bloating, 2-3 BMs if at home, if she is out she feels like she has to go more often than this. More often than not she has diarrhea and sometimes will pass small pellets. No recent blood in stools, but she has had blood in stools which prompted an evaluation with a medical transcriber. She does not remember where she was seen. Denies family history of colon cancer. Rectal exam 06/29/2024 normal. She was scheduled for a colonoscopy a year ago, and she was given the prep, but ultimately there was an insurance issue, and it did not get done. She has a therapist for PTSD, major depression, NATANAEL. Patient is estranged from her family. She endorses memory issues and concentration problems related to mental health. She questions if she has ADHD and would like a psychiatric evaluation. Patient tried Zoloft and Wellbutrin in the past which were not effective. I referred her to see a psychiatrist, and she is on a wait list. Dr. Baker from [facility] prescribes estradiol injections. The patient is thinking about having facial feminization surgery. She would like a referral. She also is interested in speech therapy to gender affirming voice therapy and referral to Dermatology to discuss options for removing facial hair. The patient tells me that being misgendered prevents her from socializing and leaving her house. She gets 1-2 migraines per month. She was previously on Depakote when migraines were more frequent, but she has been off this for quite awhile. She was prescribed sumatriptan as needed for migraines, but she says this is not as effective as rizatriptan. She agreed to have x-ray of the lower back done which I ordered because she endorses intermittent weakness of the left leg. Patient says when she turns quickly to the left sometimes the left leg feels like it gives out. No numbness or tingling in the legs. No loss of bowel or bladder control. Patient has not had imaging of the lower back. Endorses chronic nasal congestion and postnasal drip. I referred her to allergy. She did not get the referral letter so I printed this for the patient today. ROS: Constitutional: No fevers or chills. No weight loss. Respiratory: No cough Cardiovascular: No chest pain Genitourinary: No dysuria, hematuria, urinary frequency. Neurologic: No dizziness, syncope, ataxia, numbness or tingling in the extremities. Hematologic/Lymphatics: No bleeding or bruising. Skin: No rash Psychiatric: No SI/HI. Physical exam: Constitutional: Alert, in no distress. Extremities: Warm and well perfused. No clubbing, cyanosis or edema Psychiatric: Normal mood and affect [facility] Medical History (Updated 09/14/24 @ 13:22 by TAY Decker) Transgender person on hormone therapy Abnormal TSH Memory difficulty Migraines Chronic allergic rhinitis Low back pain Multiple joint pain Bloating Alternating constipation and diarrhea PTSD (post-traumatic stress disorder) Memory loss Headache Depression Anxiety Imbalance GERD (gastroesophageal reflux disease) IBS (irritable bowel syndrome) Gallstone Surgical History (Updated 08/31/24 @ 12:43 by Rufino Meyer MD) Status post laparoscopic cholecystectomy History of laparoscopic cholecystectomy (~08/18/24) No pertinent past surgical history Family History Father Substance use Alcoholism Mother Thyroid disorder Other FH: mental illness Social History Household Members: None Housing: Apartment Do you presently have visiting nurse or other home services: No Patient Tobacco Use Status: Never used Tobacco e-Cigarette/Vaping Use: Never Used Second Hand Smoke Exposure: No Substance Use Type: Marijuana service: No Current occupational status: disabled Cognitive needs: No Hearing needs: No Vision needs: Yes (glasses) Questionnaire PHQ-9 Over the last 2 weeks, how often have you been bothered by any of the following problems? 1. Little interest or pleasure in doing things: several days 2. Feeling down, depressed, or hopeless: several days 3. Trouble falling or staying asleep, or sleeping too much: several days 4. Feeling tired or having little energy: more than half the days 5. Poor appetite or overeating: nearly every day 6. Feeling bad about yourself - or that you are a failure or have let yourself or your family down: several days 7. Trouble concentrating on things, such as reading the newspaper or watching television: several days 8. Moving or speaking so slowly that other people could have noticed. Or the opposite - being so fidgety or restless that you have been moving around a lot more than usual: not at all 9. Thoughts that you would be better off or of hurting yourself in some way: not at all Total score: 10 Source: Developed by Drs. Todd Packer, Griselda Rao, Honorio Lebron and colleagues, with an educational tali from [employer]. Thrive Questionnaire Date Thrive assessed: 08/03/24 I am a: Patient What is your living situation today?: I have a place to live, but I am worried about losing it in the future Within the past 12 months, did the food you bought not last and you didn't have the money to get more?: Often true Within the past 12 months, did you worry whether your food would run out before you got money to buy more?: Often true Do you have trouble paying for medicines?: Yes Do you have trouble getting transportation to medical appointments?: No Do you have trouble paying your heating and electricity bill?: Yes Do you have trouble taking care of your child, family member or friend?: No Do you have trouble with day-to-day activities such as bathing, preparing meals, shopping, managing finances, etc.?: Yes Are you currently unemployed and looking for a job?: Yes Are you interested in more education?: Yes Please select the resources that you would like help with: Housing/Care Home, Food, Transportation, Utilities and Education Currently or been in a relationship where the following occur: I choose not to answer THRIVE Score: 4 AUDIT C Alcohol Use Questionnaire (AUDIT-C) 1. How often do you have a drink containing alcohol?: Never Total Score: 0 NATANAEL-7 AMB Questionnaire NATANAEL-7 Date NATANAEL - 7 assessed: 08/03/24 Feeling nervous, anxious, or on edge: 2 = More than half the days Not being able to stop or control worryin = Several days Worrying too much about different things: 2 = More than half the days Trouble relaxin = Several days Being so restless that it is hard to sit still: 1 = Several days Becoming easily annoyed or irritable: 1 = Several days Feeling afraid as if something awful might happen: 1 = Several days Total NATANAEL-7 score (0-4 normal; 5-9 mild; 10-14 moderate; 15-21 severe): 9 Source: Developed by Drs. Todd Packer, Griselda Rao, Honorio Lebron and colleagues, with an educational tali from [employer]. Physical exam (Primary Care) Vital Signs: Last Vital Signs Pulse 71 09/14/24 10:37 BP 96/64 09/14/24 10:37 Pulse Ox 99 09/14/24 10:37 Oxygen Delivery Method Room Air 09/14/24 10:37 Tobacco/Smoking Status: Tobacco use Status Tobacco use date assessed 08/03/24 09/14/24 10:39 Patient Tobacco Use Status Never used Tobacco 09/14/24 10:39 e-Cigarette/Vaping Use Never Used 09/14/24 10:39 PHQ-9: PHQ-9 Score PHQ-9: Total score 10 09/14/24 10:43 Thrive Assessment: Date of Thrive Assessment Date Thrive assessed 08/03/24 09/14/24 10:39 Currently or been in a relationship where the following occur: I choose not to answer Coding Level of Care Code Est Pt Level 5 (32870) Complex EM visit Add On G2211 Diagnoses Migraines G43.909 Chronic allergic rhinitis J30.9 Alternating constipation and diarrhea R19.8 Memory difficulty R41.3 Abnormal TSH R79.89 Anxiety F41.9 Depression F32.A Transgender person on hormone therapy F64.0; Z79.899 Time Spent (min) 48 Comment Direct patient care and chart documentation and orders Assessment & Plan Assessment & Plan (1) Migraines: Code(s): G43.909 - Migraine, unspecified, not intractable, without status migrainosus Category: Medical (2) Chronic allergic rhinitis: Code(s): J30.9 - Allergic rhinitis, unspecified Category: Medical (3) Alternating constipation and diarrhea: Code(s): R19.8 - Other specified symptoms and signs involving the digestive system and abdomen Category: Medical (4) Memory difficulty: Comment: Psychiatric Code(s): R41.3 - Other amnesia Category: Medical (5) Abnormal TSH: Code(s): R79.89 - Other specified abnormal findings of blood chemistry Category: Medical (6) Anxiety: Code(s): F41.9 - Anxiety disorder, unspecified Category: Medical (7) Depression: Code(s): F32.A - Depression, unspecified Category: Medical (8) Transgender person on hormone therapy: Code(s): F64.0 - Transsexualism; Z79.899 - Other continuous churn buttermaker (current) drug therapy Category: Medical Plan The patient will continue therapy. She is on a wait list for Psychiatry. She is doing well postoperatively following laparoscopic cholecystectomy. She is on a wait list for Gastroenterology to discuss longstanding IBS concerns. She will call [facility] to schedule Allergy consult. I sent a prescription for rizatriptan for migraine headaches as needed. Preventative strategies reviewed. Patient will return to the lab to have her TSH rechecked. Requests fasting glucose. Referred to [facility] to discuss hair removal options. The office will check if [facility] has a provider who can do FFS. Refer to speech therapy for gender affirming voice therapy. Influenza vaccine administered today. Follow up in 2 months. Orders: Orders Glucose Fasting Today F41.9 - Anxiety disorder, unspecified Influenza [id number] Immunization Today Z23 - Encounter for immunization Referrals Dermatology Referral R68.89 - Other general symptoms and signs Speech and Hearing Referral F64.9 - Gender identity disorder, unspecified Medications: New Fluarix Triv [id number] (PF) (flu vacc [id number] 6mos up(PF)) 0.5 mL IM ONCE 0.5 mL 0RF NS Z23 - Encounter for immunization rizatriptan take 1-2 tablets at onset of headache; if no relief, may repeat 1-2 tablets after at least 2 hrs. maximum of 20 mg per 24 hours 10 tabs 3RF Changed From albuterol sulfate 90 mcg/actuation inhalation To albuterol sulfate 90 mcg/actuation 2 puffs inhalation Q4-6H 8.5 grams 0RF
[2024-09-14 10:37] VITALS: BP 96/64; PULSE 71; O2SAT 99
== END 2024-09-14 11:26 | disposition home or self-care (01) ==
LOC: HO.HMCFM 10:15
PROVIDERS: PCP Physician Assistant Medical; Visit Provider Physician Assistant Medical
DX: G43.909 Migraine, unspecified, not intractable, without status migrainosus (principal); J30.9 Allergic rhinitis, unspecified; R19.8 Other specified symptoms and signs involving the digestive system and abdomen; R41.3 Other amnesia; R79.89 Other specified abnormal findings of blood chemistry; F41.9 Anxiety disorder, unspecified; F32.A Depression, unspecified; F64.0 Transsexualism; Z79.899 Other long term (current) drug therapy; Z23 Encounter for immunization

== ENCOUNTER → 2024-09-14 10:15 | Outpatient (BNVA) | payer OTHER, SELFPAY | PROVIDERS: PCP Physician Assistant Medical; Visit Provider Physician Assistant Medical | DX: G43.909 Migraine, unspecified, not intractable, without status migrainosus (principal); Z23 Encounter for immunization; J30.9 Allergic rhinitis, unspecified; R19.8 Other specified symptoms and signs involving the digestive system and abdomen; R41.3 Other amnesia; R79.89 Other specified abnormal findings of blood chemistry; F41.9 Anxiety disorder, unspecified; F32.A Depression, unspecified; F64.0 Transsexualism; Z79.899 Other long term (current) drug therapy; Z90.49 Acquired absence of other specified parts of digestive tract | CPT/HCPCS: 90471; 90656; 96127; 99212 ==

== ENCOUNTER 2024-11-16 09:50 | Outpatient (AMB) | payer OTHER, SELFPAY ==
--- NOTE | 2024-11-16 09:51 | A.OFFPC_ITS ---
Vital Signs 11/16/24 09:55 Height 5 ft 4 in Weight 141 lb BMI 24.2 BP 92/66 Blood Pressure Location Rt brachial Position Sitting Pulse 94 Pulse Source Pulse Oximeter Pulse Oximetry (%) 97 Oxygen Delivery Method Room Air Intake Visit Reasons: follow up 30 minute Intake Note: Follow up Security Strategist Required: No Allergies pollen extracts Allergy (Mild, Verified 11/16/24 09:51) Unknown Tobacco use date assessed: 08/03/24 Dental Screening Dental Screen Date: 08/03/24 HPI HPI Comments History of Present Illness Details This is a 29-year-old transgender female presenting for follow up. The patient uses she/her pronouns. She is in the process of referral to Gastroenterology for IBS like symptoms for the past 11 years which we previously discussed. She endorses IBS like symptoms for 11 years. Bloating, 2-3 BMs if at home, if she is out she feels like she has to go more often than this. More often than not she has diarrhea and sometimes will pass small pellets. No recent blood in stools, but she has had blood in stools which prompted an evaluation with a structural iron erector. She does not remember where she was seen. Denies family history of colon cancer. Rectal exam 06/29/2024 normal. She was scheduled for a colonoscopy a year ago, and she was given the prep, but ultimately there was an insurance issue, and it did not get done. The patient feels that bloating contributes to chronic pain. The patient had a CT scan of the abdomen and pelvis on 06/29/2024 prior to c holecystectomy. It was unremarkable aside from gallbladder findings. She has a therapist for PTSD, major depression, ANTANAEL. Patient is estranged from her family. She endorses memory issues and concentration problems related to mental health. We discussed this at length today. She has been struggling with executive functions. She gives an example that there is a moldy coffee pot in her apartment that her roommate left behind, and she knows she needs to throw it out, but she keeps walking by it. She questions if she has ADHD and would like a psychiatric evaluation. Patient tried Zoloft and Wellbutrin in the past which were not effective. I referred the patient to Psychiatry, but she has not heard anything back about this. Patient also brings up a concern that her therapist will be leaving the practice in February this year, and she has told her that she is going to refer her to her colleague. The patient is disabled. She receives only 960 dollars through disability monthly. She has missed the rent payment in October and July. She is concerned about homelessness. She says there is some when she could move in with in [place], but she would lose all her [place] healthcare. I asked the patient about a RUBBER FACTORY WORKER to help with tasks around her home. Patient says [facility] approved it twice, but no one ever came out. Patient says she is in a constant state of depression, but she wants to live her life and denies SI/HI. She has been involuntarily hospitalized in her 20s which damaged her trust with previous healthcare providers. Dr. Baker from [facility] prescribes estradiol injections. The patient brings up request for referral for facial feminization surgery. We had sent the referral to a couple of Plastic surgery offices in this area, but they do not perform the procedure. The patient is okay with making referral to [facility]. Patient says [facility] we will provide transportation. She was referred to speech therapy for gender affirming voice therapy. I printed the letter that she can call to schedule this. She was referred to Dermatology, and they contacted her. They said she did not have active insurance though she did, so she was supposed to call back. She would like to know if they can contact her since she is having difficulty following through with these types of tasks. The patient tells me that being misgendered prevents her from socializing and leaving her house. She had a few weeks with increased migraines which may have been linked to stress. She was previously on Depakote when migraines were more frequent, but she has been off this for quite awhile. She treated with rizatriptan which is effective. The patient has a growth on the left testicle. Requests referral to specialist rather than exam today. She brought this up to the provider at [facility]. It has been there about a year. She feels it has been slowly enlarging and is tender to touch it, but otherwise it does not cause any symptoms. There is no redness or history of trauma. The patient says that she is having a very hard time talking about it today because it makes her feel very dysphoric. ROS: Constitutional: No fevers or chills. No weight loss. Respiratory: No cough Cardiovascular: No chest pain Genitourinary: No urethral discharge, hematuria. See HPI Neurologic: No dizziness, syncope, ataxia, numbness or tingling in the extremities. Skin: No rash Psychiatric: See HPI Physical exam: Constitutional: Alert, in no distress. Extremities: Warm and well perfused. No clubbing, cyanosis or edema : Patient deferred. Psychiatric: Anxious, tearful at times, patient has to take brief pauses during communication [facility] Medical History (Updated 11/16/24 @ 11:19 by TAY Decker) Left groin mass Transgender person on hormone therapy Abnormal TSH Memory difficulty Migraines Chronic allergic rhinitis Low back pain Multiple joint pain Bloating Alternating constipation and diarrhea PTSD (post-traumatic stress disorder) Memory loss Headache Depression Anxiety Imbalance GERD (gastroesophageal reflux disease) IBS (irritable bowel syndrome) Gallstone Surgical History Status post laparoscopic cholecystectomy History of laparoscopic cholecystectomy (~08/18/24) No pertinent past surgical history Family History Father Substance use Alcoholism Mother Thyroid disorder Other FH: mental illness Social History (Updated 11/16/24 @ 09:58 by Tennille Hutchison CMA) Household Members: None Housing: Apartment Do you presently have visiting nurse or other home services: No Alcohol intake: never Patient Tobacco Use Status: Never used Tobacco e-Cigarette/Vaping Use: Never Used Second Hand Smoke Exposure: No Substance Use Type: Marijuana service: No Current occupational status: disabled Cognitive needs: No Hearing needs: No Vision needs: Yes (glasses) Questionnaire PHQ-9 Over the last 2 weeks, how often have you been bothered by any of the following problems? 1. Little interest or pleasure in doing things: several days 2. Feeling down, depressed, or hopeless: more than half the days 3. Trouble falling or staying asleep, or sleeping too much: several days 4. Feeling tired or having little energy: nearly every day 5. Poor appetite or overeating: several days 6. Feeling bad about yourself - or that you are a failure or have let yourself or your family down: several days 7. Trouble concentrating on things, such as reading the newspaper or watching television: nearly every day 8. Moving or speaking so slowly that other people could have noticed. Or the opposite - being so fidgety or restless that you have been moving around a lot more than usual: more than half the days 9. Thoughts that you would be better off or of hurting yourself in some way: not at all Total score: 14 Depression Screening Interpretation: Positive Depression Screening Done: Yes 52719 - PHQ-9 Billing: Yes Source: Developed by Drs. Todd Pcaker, Griselda Rao, Honorio Lebron and colleagues, with an educational tali from [employer] Thrive Questionnaire Date Thrive assessed: 11/16/24 I am a: Patient What is your living situation today?: I have a place to live, but I am worried about losing it in the future Within the past 12 months, did the food you bought not last and you didn't have the money to get more?: Often true Within the past 12 months, did you worry whether your food would run out before you got money to buy more?: Often true Do you have trouble paying for medicines?: I choose not to answer this question Do you have trouble getting transportation to medical appointments?: I choose not to answer this question Do you have trouble paying your heating and electricity bill?: Yes Do you have trouble taking care of your child, family member or friend?: No Do you have trouble with day-to-day activities such as bathing, preparing meals, shopping, managing finances, etc.?: Yes Are you currently unemployed and looking for a job?: Yes Are you interested in more education?: Yes Please select the resources that you would like help with: Housing/Penitentiary, Food, Transportation and Utilities Currently or been in a relationship where the following occur: I choose not to answer THRIVE Score: 4 AUDIT C Alcohol Use Questionnaire (AUDIT-C) 1. How often do you have a drink containing alcohol?: Never 3. How often do you have six or more drinks on one occasion?: Never Total Score: 0 NATANAEL-7 AMB Questionnaire NATANAEL-7 Date NATANAEL - 7 assessed: 11/16/24 Feeling nervous, anxious, or on edge: 2 = More than half the days Not being able to stop or control worryin = More than half the days Worrying too much about different things: 2 = More than half the days Trouble relaxin = Nearly every day Being so restless that it is hard to sit still: 0 = Not at all Becoming easily annoyed or irritable: 1 = Several days Feeling afraid as if something awful might happen: 2 = More than half the days Total NATANAEL-7 score (0-4 normal; 5-9 mild; 10-14 moderate; 15-21 severe): 12 Source: Developed by Drs. Todd Packer, Griselda Rao, Honorio Lebron and colleagues, with an educational tali from [employer] NATANAEL-7 Assessment Billing NATANAEL-7 Assessment Tool: NATANAEL-7 Assessment 39762 Physical exam (Primary Care) Vital Signs: Last Vital Signs Pulse 94 11/16/24 09:55 BP 92/66 11/16/24 09:55 Pulse Ox 97 11/16/24 09:55 Oxygen Delivery Method Room Air 11/16/24 09:55 BMI result Body Mass Index 24.2 Tobacco/Smoking Status: Tobacco use Status Tobacco use date assessed 08/03/24 11/16/24 09:58 Patient Tobacco Use Status Never used Tobacco 11/16/24 09:58 e-Cigarette/Vaping Use Never Used 11/16/24 09:58 PHQ-9: PHQ-9 Score PHQ-9: Total score 14 11/16/24 11:27 Depression Screening Interpretation: Positive Thrive Assessment: Date of Thrive Assessment Date Thrive assessed 11/16/24 11/16/24 09:58 Currently or been in a relationship where the following occur: I choose not to answer Coding Level of Care Code Est Pt Level 5 (46386) Complex EM visit Add On G2211 Diagnoses Migraines G43.909 Alternating constipation and diarrhea R19.8 Anxiety F41.9 Depression F32.A Left groin mass R19.09 Additional Codes NATANAEL-7 Assessment Billing - NATANAEL-7 Assessment Tool: NATANAEL-7 Assessment 10219 ([id number]) PHQ-9 - 31434 - PHQ-9 Billing: Yes ([id number]) Time Spent (min) 65 Comment Direct patient care, completing documentation Assessment & Plan Assessment & Plan (1) Migraines: Code(s): G43.909 - Migraine, unspecified, not intractable, without status migrainosus Category: Medical (2) Alternating constipation and diarrhea: Code(s): R19.8 - Other specified symptoms and signs involving the digestive system and abdomen Category: Medical (3) Anxiety: Code(s): F41.9 - Anxiety disorder, unspecified Category: Medical (4) Depression: Code(s): F32.A - Depression, unspecified Category: Medical (5) Left groin mass: Code(s): R19.09 - Other intra-abdominal and pelvic swelling, mass and lump Category: Medical Plan Pleasant 29-year-old female with significant healthcare anxiety superimposed on chronic anxiety, depression and PTSD. The patient has an appointment with her therapist this afternoon. I encouraged her to ask her therapist if she can refer her to the colleague before February to decrease her anticipatory anxiety over the transition. I will follow up with the Community navigator regarding the referral to Psychiatry. I will contact [facility] regarding a RUBBER FACTORY WORKER for this patient. Anxiety, depression and PTSD significantly impact her executive functioning. She will call Gastroenterology back to set up the consult for IBS concerns. She will call [facility] to schedule Allergy consult. She is referred anew to Dermatology to discuss removal of on wanted hair. She is referred to the [facility] transgender surgery program for consult for facial feminization surgery. I provided the patient with the referrals letter for speech therapy so she can contact them. Ultrasound ordered urgently for evaluation of left scrotal mass and refer to Urology. Follow up in 2 months. 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
[2024-11-16 09:55] VITALS: BP 92/66; PULSE 94; O2SAT 97; BMI 24.2
== END 2024-11-16 11:00 | disposition home or self-care (01) ==
PROVIDERS: PCP Physician Assistant Medical; Visit Provider Physician Assistant Medical
DX: G43.909 Migraine, unspecified, not intractable, without status migrainosus (principal); R19.8 Other specified symptoms and signs involving the digestive system and abdomen; F41.9 Anxiety disorder, unspecified; F32.A Depression, unspecified; R19.09 Other intra-abdominal and pelvic swelling, mass and lump

== ENCOUNTER → 2024-11-16 09:50 | Outpatient (BNVA) | payer OTHER, SELFPAY | PROVIDERS: PCP Physician Assistant Medical; Visit Provider Physician Assistant Medical | DX: G43.909 Migraine, unspecified, not intractable, without status migrainosus (principal); R19.8 Other specified symptoms and signs involving the digestive system and abdomen; F41.9 Anxiety disorder, unspecified; F32.A Depression, unspecified; R19.09 Other intra-abdominal and pelvic swelling, mass and lump; R68.89 Other general symptoms and signs; F64.0 Transsexualism; Z79.899 Other long term (current) drug therapy | CPT/HCPCS: 96127; 99212 ==

== ENCOUNTER 2025-01-11 15:29 | Outpatient (AMB) | payer OTHER, SELFPAY ==
--- NOTE | 2025-01-11 16:00 | MHC.PC.OV ---
Vital Signs 01/11/25 16:05 Height 5 ft 4 in Weight 140 lb BMI 24.0 BP 94/64 Blood Pressure Location Rt brachial Position Sitting Respiration 14 Pulse 93 Pulse Source Pulse Oximeter Pulse Oximetry (%) 99 Oxygen Delivery Method Room Air Intake Visit Reasons: 30 minutes follow up - end of session appointment Intake Note: Follow up. Saw Support Clerk this month. Appetizer Packer Required: No Allergies pollen extracts Allergy (Mild, Verified 01/11/25 16:04) Unknown dog dander Allergy (Unknown, Verified 01/11/25 16:04) Unknown house dust mite Allergy (Unknown, Verified 01/11/25 16:04) Unknown Tobacco use date assessed: 01/11/25 Dental Screening Dental Screen Date: 08/03/24 HPI HPI Comments History of Present Illness Details This is a 29-year-old transgender female presenting for follow up. The patient uses she/her pronouns. She has an appointment scheduled for gastroenterology for IBS like symptoms for the past 11 years which we previously discussed. She endorses IBS like symptoms for 11 years. Bloating, 2-3 BMs if at home, if she is out she feels like she has to go more often than this. More often than not she has diarrhea and sometimes will pass small pellets. No recent blood in stools, but she has had blood in stools which prompted an evaluation with a bottling equipment sales representative. She does not remember where she was seen. Denies family history of colon cancer. Rectal exam 06/29/2024 normal. She was scheduled for a colonoscopy a year ago, and she was given the prep, but ultimately there was an insurance issue, and it did not get done. The patient had a CT scan of the abdomen and pelvis on 06/29/2024 prior to cholecystectomy. It was unremarkable aside from gallbladder findings. She has a therapist for PTSD, major depression, NATANAEL. Patient is estranged from her family. She endorses memory issues and concentration problems related to mental health. She struggles with executive functioning. She questioned if she has ADHD, and agreed to a psychiatric consult. I placed the referral, and she believes she is on a waitlist now to see Dr. Isaias Pillai. Patient tried Zoloft and Wellbutrin in the past which were not effective. The patient is disabled. We discussed getting a WHEEL BUFFER to help her with tests at home. I contacted [facility] and submitted the authorization form for this. The patient says since then somebody did come to her home for an evaluation, and she is still waiting to hear about how many hours will be assigned. Patient says she is in a constant state of depression, but she wants to live her life and denies SI/HI. She has been involuntarily hospitalized in her 20s which damaged her trust with previous healthcare providers. Dr. Baker from [facility] prescribes estradiol injections. Patient was referred to the [facility] transgender surgical program for facial feminization surgery consult. She was contacted, and she says that the person doing the intake was asking unnecessary questions, and the phone call and did with the person saying you are all set, but she does not know if she is all set to schedule a consult or if there is an appointment already made. I referred her to Dermatology, and I had given her the contact information for this, but she does not have it anymore. This is for electrolysis versus laser surgery for facial hair removal. The patient tells me that being missed gender prevents her from socializing and leaving her home. I printed the letter with the contact information for [facility] speech therapy for gender affirming voice therapy, but the patient needs this information again today. She discussed migraines again which have been more frequent which are attributed to stress. She endorses aura symptoms including flashing lights in the right eye that occurred 1 time. She was previously on Depakote when migraines were more frequent, but she has been off this for quite awhile. She treated with rizatriptan which is effective. The patient did not respond to attempts to schedule the scrotal ultrasound for evaluation of the growth on the left testicle that she discussed at her last appointment. She had previously dressed it with the provider at [facility], it has been there about a year. She reported it was slowly enlarging and tender to touch, but otherwise it did not cause symptoms. There was no redness or history of trauma. Patient says it was very difficult to speak about this because it makes her feel very dysphoric. She has a urology appointment scheduled 01/18/2025. She continues to endorse pain in the lower back and again describes when she turns quickly to the left sometimes the left feet leg feels like it will give out. There is no numbness or tingling in the legs or loss of bowel or bladder control. I ordered an x-ray back in July, but it was not completed yet. ROS: Constitutional: No fevers or chills. No weight loss. Respiratory: No cough Cardiovascular: No chest pain Genitourinary: No urethral discharge, hematuria. See HPI Neurologic: No dizziness, syncope, ataxia, numbness or tingling in the extremities. Skin: No rash Psychiatric: See HPI Physical exam: Constitutional: Alert, in no distress. Normal gait. Extremities: Warm and well perfused. No clubbing, cyanosis or edema : Patient deferred. Spine: No midline spinal tenderness. +pain with extension. Full range of motion of the lumbar spine. Negative straight leg raises bilaterally. Lower extremity strength 5/5 bilaterally. Hips: No crepitus, full range of motion, strength 5/5 bilaterally. No tenderness Psychiatric: Appears less anxious today. Maintains good eye contact. [facility] Medical History (Updated 01/11/25 @ 17:41 by TAY Decker) Other intra-abdominal and pelvic swelling, mass and lump Left groin mass Transgender person on hormone therapy Abnormal TSH Memory difficulty Migraines Chronic allergic rhinitis Low back pain Multiple joint pain Bloating Alternating constipation and diarrhea PTSD (post-traumatic stress disorder) Memory loss Headache Depression Anxiety Imbalance GERD (gastroesophageal reflux disease) IBS (irritable bowel syndrome) Gallstone Surgical History Status post laparoscopic cholecystectomy History of laparoscopic cholecystectomy (~08/18/24) No pertinent past surgical history Family History Father Substance use Alcoholism Mother Thyroid disorder Other FH: mental illness Social History (Updated 01/11/25 @ 16:31 by Tennille Hutchison CMA) Household Members: None Housing: Apartment Do you presently have visiting nurse or other home services: No Alcohol intake: never Patient Tobacco Use Status: Never used Tobacco e-Cigarette/Vaping Use: Never Used Second Hand Smoke Exposure: No Substance Use Type: Marijuana service: No Current occupational status: disabled Cognitive needs: No Hearing needs: No Vision needs: Yes (glasses) Questionnaire Thrive Questionnaire Date Thrive assessed: 11/16/24 I am a: Patient What is your living situation today?: I have a place to live, but I am worried about losing it in the future Within the past 12 months, did the food you bought not last and you didn't have the money to get more?: Often true Within the past 12 months, did you worry whether your food would run out before you got money to buy more?: Often true Do you have trouble paying for medicines?: I choose not to answer this question Do you have trouble getting transportation to medical appointments?: I choose not to answer this question Do you have trouble paying your heating and electricity bill?: Yes Do you have trouble taking care of your child, family member or friend?: No Do you have trouble with day-to-day activities such as bathing, preparing meals, shopping, managing finances, etc.?: Yes Are you currently unemployed and looking for a job?: Yes Are you interested in more education?: Yes Currently or been in a relationship where the following occur: I choose not to answer THRIVE Score: 4 AUDIT C Alcohol Use Questionnaire (AUDIT-C) 2. How many drinks containing alcohol do you have on a typical day when you are drinking?: 1 or 2 3. How often do you have six or more drinks on one occasion?: Never Total Score: 0 NATANAEL-7 AMB Questionnaire NATANAEL-7 Date NATANAEL - 7 assessed: 11/16/24 Source: Developed by Drs. Todd Packer, Griselda Rao, Honorio Lebron and colleagues, with an educational tali from [employer]. Physical exam (Primary Care) Vital Signs: Last Vital Signs Pulse 93 01/11/25 16:05 Resp 14 01/11/25 16:05 BP 94/64 01/11/25 16:05 Pulse Ox 99 01/11/25 16:05 Oxygen Delivery Method Room Air 01/11/25 16:05 BMI result Body Mass Index 24.0 Tobacco/Smoking Status: Tobacco use Status Tobacco use date assessed 01/11/25 01/11/25 16:07 Patient Tobacco Use Status Never used Tobacco 01/11/25 16:31 e-Cigarette/Vaping Use Never Used 01/11/25 16:31 Thrive Assessment: Date of Thrive Assessment Date Thrive assessed 11/16/24 01/11/25 16:01 Currently or been in a relationship where the following occur: I choose not to answer Coding Level of Care Code Est Pt Level 5 (58181) Complex EM visit Add On G2211 Diagnoses Migraines G43.909 Alternating constipation and diarrhea R19.8 Anxiety F41.9 Depression F32.A Left groin mass R19.09 Time Spent (min) 50 Comment Direct patient care and completing documentation Assessment & Plan Assessment & Plan (1) Migraines: Code(s): G43.909 - Migraine, unspecified, not intractable, without status migrainosus Category: Medical (2) Alternating constipation and diarrhea: Code(s): R19.8 - Other specified symptoms and signs involving the digestive system and abdomen Category: Medical (3) Anxiety: Code(s): F41.9 - Anxiety disorder, unspecified Category: Medical (4) Depression: Code(s): F32.A - Depression, unspecified Category: Medical (5) Left groin mass: Code(s): R19.09 - Other intra-abdominal and pelvic swelling, mass and lump Category: Medical Plan Pleasant 29-year-old female with significant healthcare anxiety superimposed on chronic anxiety, depression and PTSD. Patient is seeing her therapist, and she is going to be seeing a another therapist in the office when her therapist leaves. She is on the wait list for a psychiatrist. I will contact [facility] regarding a WHEEL BUFFER for this patient. Anxiety, depression and PTSD significantly impact her executive functioning. She has a consult scheduled for Gastroenterology. I gave her the contact numbers for speech therapy and Dermatology. We will reach out to the [facility] transgender surgical program to see if the consult was scheduled. I provided the patient with the referrals letter for speech therapy so she can contact them. I reordered the patient's ultrasound urgently and explained why this is important. She has a urology consult scheduled next week. She will have x-rays of the lower back and left hip and pelvis completed. Follow up in 2 months. Orders: Orders XR hip LT w [id number] 01/11/25 M25.50 - Pain in unspecified joint, M54.50 - Low back pain, unspecified US scrotum 01/11/25 R19.09 - Other intra-abdominal and pelvic swelling, mass and lump Patient Instructions: [facility]
[2025-01-11 16:05] VITALS: BP 94/64; PULSE 93; RESP 14; O2SAT 99; BMI 24.0
--- OUTSIDE RECORDS SUMMARY | 2025-01-11 18:20 | XMS_ITS | Clinical Summary ---
Author Organization [facility] Address [address] [place] [address] Care Team Providers Care Under Cutting Machine Operator Name Role Phone Unavailable Primary Care Provider Unavailabl e Social History Tobacco Use Types Packs/Day Years Used Date Smoking Tobacco: Never Assessed Sex and Gender Information Value Date Recorded Sex Assigned at Not on file Legal Sex Male 1:01 PM EST Gender Identity Not on file Sexual Orientation Not on file Plan of Treatment Health Maintenance Due Date Last Done Comments DTaP,Tdap,and Td Vaccines (1 - Tdap) 2012 Hepatitis B Vaccines (1 of 3 - 19+ 3-dose series) 2012 Depression Screening 12/10/2023 HIV Screening 12/10/2023 Hepatitis C Screening 12/10/2023 Social Influencers of Health Screening 12/10/2023 COVID-19 Vaccine ( - 2023-2 5 season) 2024 Influenza Vaccine (#1) 2024 HIB Vaccines Aged Out No longer eligi ble based on patient's age to complete this topic HPV Vaccines Aged Out No longer eligi ble based on patient's age to complete this topic Hepatitis A Vaccines Aged Out No long er eligible based on patient's age to complete this topic IPV Vaccines Aged Out No longer eligi ble based on patient's age to complete this topic MMR Vaccines Aged Out No longer eligi ble based on patient's age to complete this topic Meningococcal ACWY Vaccine Aged Out N o longer eligible based on patient's age to complete this topic Meningococcal B Vacine Aged Out No lo nger eligible based on patient's age to complete this topic Pneumococcal Vaccine: Pediat rics (0 to 5 Years) and At-Risk Patients (6 to 64 Years) Aged Out No longer eligible b ased on patient's age to complete this topic RSV Immunization Patients Un gregor 20 months Aged Out No longer eligible b ased on patient's age to complete this topic Varicella Vaccines Aged Out No longer eligible based on patient's age to complete this topic
--- OUTSIDE RECORDS SUMMARY | 2025-01-11 18:20 | XMS_ITS | Clinical Summary ---
Author Organization [facility] Address [address] [place] [address] Care Team Providers Care Quality Control Name Role Phone Unavailable Primary Care Provider Unavailabl e Allergies No known active allergies Medications Medication Sig Dispensed Refills Start Date End Date Status sertraline (ZOLOFT) 100 MG tablet Take 100 mg by mouth daily. 0 Active Social History Tobacco Use Types Packs/Day Years Used Date Smoking Tobacco: Never Alcohol Use Standard Drinks/Week Comments No 0 (1 standard drink = 0.6 oz pur e alcohol) Sex and Gender Information Value Date Recorded Sex Assigned at Not on file Gender Identity Not on file Sexual Orientation Not on file Last Filed Vital Signs Vital Sign Reading Time Taken Comments Blood Pressure 121/77 05/25/2017 10:56 AM EDT Pulse 69 05/25/2017 10:56 AM EDT Temperature 36.7 ??C (98 ??F) 05/25/2017 10:56 AM EDT Respiratory Rate 18 05/25/2017 10:56 AM EDT Oxygen Saturation 99% 05/25/2017 10:56 AM EDT Inhaled Oxygen Concentration - - Weight 61.2 kg (135 lb) 05/24/2017 4:41 PM EDT Height 170.2 cm (5' 7 ) 05/24/2017 4:41 PM EDT Body Mass Index 21.14 05/24/2017 4:41 PM EDT Plan of Treatment Not on file
== END 2025-01-11 16:51 | disposition home or self-care (01) ==
PROVIDERS: PCP Physician Assistant Medical; Visit Provider Physician Assistant Medical
DX: G43.909 Migraine, unspecified, not intractable, without status migrainosus (principal); R19.8 Other specified symptoms and signs involving the digestive system and abdomen; F41.9 Anxiety disorder, unspecified; F32.A Depression, unspecified; R19.09 Other intra-abdominal and pelvic swelling, mass and lump

== ENCOUNTER → 2025-01-11 15:29 | Outpatient (BNVA) | payer OTHER, SELFPAY | PROVIDERS: PCP Physician Assistant Medical; Visit Provider Physician Assistant Medical | DX: G43.909 Migraine, unspecified, not intractable, without status migrainosus (principal); R19.8 Other specified symptoms and signs involving the digestive system and abdomen; F41.9 Anxiety disorder, unspecified; F32.A Depression, unspecified; R19.09 Other intra-abdominal and pelvic swelling, mass and lump; F43.10 Post-traumatic stress disorder, unspecified; F64.0 Transsexualism | CPT/HCPCS: 99212 ==

== ENCOUNTER 2025-01-18 09:06 | Outpatient (AMB) | payer OTHER, SELFPAY ==
--- NOTE | 2025-01-18 09:15 | A.OFFVIS_ITS ---
Intake Visit Reasons: scrotal mass Intake Note: New patient presents today for initial visit for scrotal mass Urology Medication:none Blood Thinner:none Antibiotic Allergies:none Allergies pollen extracts Allergy (Mild, Verified 02/18/25 10:57) Unknown dog dander Allergy (Unknown, Verified 02/18/25 10:57) Unknown house dust mite Allergy (Unknown, Verified 02/18/25 10:57) Unknown HPI Comments Details: History of Present Illness The patient is a 29-year-old transgender female presenting with a concern regarding a scrotal mass. The patient states the mass has been present for approximately one year, located in the left testicle, and has increased in size over time, causing discomfort that was initially present only upon palpation and is now constant. The urinary characteristics have changed, being more viscous and yellowish, with no reports of pain or burning. Previous STD screenings have been negative. Additionally, the patient experiences balance disturbances predominantly affecting the left side, which have been communicated to the primary care physician. There is a history of gallbladder removal surgery which occasionally affects bowel movements. Urinary Symptoms Review - Pt reports changes to urinary characteristics: more viscous and yellowish - No dysuria reported - Negative STD screenings Examination: - left epidydimal fullnes palpated, tender, maybe related to cystitic structure, or infection. COUNT INCLUDES THE [facility] Medical History (Updated 03/05/25 @ 16:39 by TAY Decker) Vitamin D deficiency Chronic fatigue Weakness Paresthesia Other intra-abdominal and pelvic swelling, mass and lump Left groin mass Transgender person on hormone therapy Abnormal TSH Memory difficulty Migraines Chronic allergic rhinitis Low back pain Multiple joint pain Bloating Alternating constipation and diarrhea PTSD (post-traumatic stress disorder) Memory loss Headache Depression Anxiety Imbalance GERD (gastroesophageal reflux disease) IBS (irritable bowel syndrome) Gallstone Surgical History Status post laparoscopic cholecystectomy History of laparoscopic cholecystectomy (~08/18/24) No pertinent past surgical history Family History Father Substance use Alcoholism Mother Thyroid disorder Other FH: mental illness Social History (Updated 02/18/25 @ 10:59 by Ashley Minor MA) Household Members: None Housing: Apartment Do you presently have visiting nurse or other home services: No Alcohol intake: current Alcohol intake frequency: former alcohol drinker Comment: Occassionaly Patient Tobacco Use Status: Never used Tobacco e-Cigarette/Vaping Use: Never Used Second Hand Smoke Exposure: No Substance Use Type: Marijuana service: No Current occupational status: disabled Cognitive needs: No Hearing needs: No Vision needs: Yes (glasses) Review of Systems Const All systems reviewed & are unremarkable except as noted in HPI and below Reports no additional complaints Eyes Reports no additional complaints ENT Reports no additional complaints Card Reports no additional complaints Resp Reports no additional complaints GI Reports no additional complaints Reports as per HPI Musc Reports no additional complaints Skin/Breast Reports system reviewed and no additional complaints, except as documented Neuro Reports no additional complaints Psych Reports no additional complaints Endo Reports no additional complaints Celso/Lymph Reports no additional complaints Aller/Immun Reports no additional complaints Physical Exam Const General: healthy appearing, no acute distress and well developed Orientation/consciousness: patient oriented x3 HEENT Head: Yes normocephalic and Yes atraumatic Eyes Conjunctivae: conjunctivae normal Neck Neck: Yes normal visual inspection Chest Chest palpation & inspection: normal inspection of the chest Resp Effort & Inspection: normal respiratory effort Cardio Rate: regular rate GI Inspection: Yes normal to inspection Palpation (GI): Soft to palpation Other: left epidydimal fullnes palpated, tender, Neuro General: patient oriented x3 Psych Appearance: grossly normal Affect: normal affect Assessment & Plan Assessment & Plan (1) Anxiety: Code(s): F41.9 - Anxiety disorder, unspecified Category: Medical (2) Epididymal cyst: Code(s): N50.3 - Cyst of epididymis Category: Medical (3) Left testicular pain: Code(s): N50.812 - Left testicular pain Category: Medical Plan Plan I will arrange for a scrotal ultrasound. Ciprofloxacin 500 mg, twice daily for seven days, will be prescribed to address potential infection, which could alleviate associated tenderness. This intervention aims to manage any infection present in the cyst but may not eliminate the cyst itself. Pt to fu with PCP regarding balance disturbances, and urinary changes will be monitored. Patient Instructions: The patient had an opportunity to ask questions regarding treatment plan. The patient expressed understanding and agreement with the above treatment plan. The patient is aware they should contact our office by phone for worsening of their current condition or the appearance of new symptoms. Compliance is encouraged with any medications and followup testing that is ordered. It is a privilege to be allowed the opportunity to participate in the urologic care of your patient. If you have any questions or concerns regarding treatment for the above conditions please do not hesitate to contact me. The office telephone contact is [phone]. This note is constructed in part using voice recognition software. While every effort has been made to ensure accuracy smalltalk developer errors may have been included. Yours sincerely, Amalia Mayorga MD Scribe Plan - Not visible on output: Patient was informed and verbally consented to the use of an ambient scribe for clinic note documentation during this visit. Coding Level of Care Code New Pt Level 4 (79920) Diagnoses Anxiety F41.9 Epididymal cyst N50.3 Left testicular pain N50.812
--- OUTSIDE RECORDS SUMMARY | 2025-01-18 09:40 | XMS_ITS | Clinical Summary ---
Author Organization [facility] Address [address] [place] [address] Care Team Providers Care Management Associate Name Role Phone Unavailable Primary Care Provider [...]
--- OUTSIDE RECORDS SUMMARY | 2025-01-18 09:40 | XMS_ITS | Clinical Summary ---
Author Organization [facility] Address [address] [place] [address] Care Team Providers Care Admissions Officer Name Role Phone Unavailable Primary Care Provider [...]
== END 2025-01-18 10:10 | disposition home or self-care (01) ==
PROVIDERS: PCP Physician Assistant Medical; Visit Provider Urology
DX: F41.9 Anxiety disorder, unspecified (principal); N50.3 Cyst of epididymis; N50.812 Left testicular pain
CPT/HCPCS: 99204

== ENCOUNTER → 2025-01-18 | Outpatient (BNVA) | payer OTHER, SELFPAY | PROVIDERS: PCP Physician Assistant Medical; Visit Provider Urology | DX: N50.3 Cyst of epididymis (principal); N50.812 Left testicular pain; F41.9 Anxiety disorder, unspecified; F64.0 Transsexualism | CPT/HCPCS: 99202 ==

== ENCOUNTER 2025-02-02 13:36 | Outpatient (REF) | payer OTHER, SELFPAY ==
--- NOTE | ~2025-02-02 | US_ITS ---
EXAMINATION: US SCROTUM HISTORY: R19.09 - left testicle lump. COMPARISONS: There are no prior studies for comparison. FINDINGS: Real-time grayscale ultrasound imaging of the scrotum was performed. RIGHT TESTICLE: The right testis measures 3.7 x 2.2 x 2.0 cm and demonstrates normal homogeneous echotexture. No masses are seen. The right testis demonstrates normal color Doppler flow. RIGHT EPIDIDYMIS: Normal in size, shape, and vascularity. LEFT TESTICLE: The left testis measures 3.5 x 2.1 x 2.3 cm and demonstrates normal homogeneous echotexture. No masses are seen. The left testis demonstrates normal color Doppler flow. LEFT EPIDIDYMIS: The left epididymis is enlarged and hypervascular, consistent with epididymitis. VARICOCELE: None. HYDROCELE: No significant hydrocele is seen. OTHER COMMENTS: None. US/US scrotum IMPRESSION: Findings consistent with left epididymitis. No testicular abnormality is seen. Electronically signed by: Todd Pacheco MD 02/02/2025 02:26 PM EDT
== END 2025-02-02 13:37 | disposition home or self-care (01) ==
LOC: HO.US 13:36
PROVIDERS: PCP Physician Assistant Medical; Visit Provider Physician Assistant Medical
DX: R19.09 Other intra-abdominal and pelvic swelling, mass and lump (principal)
CPT/HCPCS: 76870

== ENCOUNTER → 2025-02-02 13:48 | Outpatient (BNV) | payer OTHER, SELFPAY | PROVIDERS: PCP Physician Assistant Medical; Visit Provider Radiology Diagnostic Radiology | DX: N45.1 Epididymitis (principal) | CPT/HCPCS: 76870 ==

== ENCOUNTER 2025-02-18 10:29 | Outpatient (AMB) | payer OTHER, SELFPAY ==
--- NOTE | 2025-02-18 10:55 | A.OFFPC_ITS ---
Vital Signs 02/18/25 11:04 Height 5 ft 4 in Weight 141 lb BMI 24.2 BP 108/58 L Blood Pressure Location Lt brachial Position Sitting Pulse 80 Pulse Source Pulse Oximeter Pulse Oximetry (%) 98 Oxygen Delivery Method Room Air Intake Visit Reasons: 30 minute follow up (lyft) Intake Note: Aracelis presents in the office for a follow up today. Technical Program Manager Required: No Allergies pollen extracts Allergy (Mild, Verified 02/18/25 10:57) Unknown dog dander Allergy (Unknown, Verified 02/18/25 10:57) Unknown house dust mite Allergy (Unknown, Verified 02/18/25 10:57) Unknown Tobacco use date assessed: 02/18/25 Dental Screening Dental Screen Date: 02/18/25 Did you have a dental visit in the last 12 months?: No Did you have a dental problem in the last 6 months where you did not have access to dental care?: No Was dental information given to patient?: Yes HPI HPI Comments History of Present Illness Details This is a 29-year-old transgender female presenting for follow up. The patient uses she/her pronouns. She has an appointment scheduled for gastroenterology for IBS like symptoms for the past 11 years which we previously discussed. She endorses IBS like symptoms for 11 years. Bloating, 2-3 BMs if at home, if she is out she feels like she has to go more often than this. More often than not she has diarrhea and sometimes will pass small pellets. No recent blood in stools, but she has had blood in stools which prompted an evaluation with a vp of digital marketing. She does not remember where she was seen. Denies family history of colon cancer. Rectal exam 06/29/2024 normal. She was scheduled for a colonoscopy a year ago, and she was given the prep, but ultimately there was an insurance issue, and it did not get done. The patient had a CT scan of the abdomen and pelvis on 06/29/2024 prior to chol ecystectomy. It was unremarkable aside from gallbladder findings. She has a therapist for PTSD, major depression, NATANAEL. Patient is estranged from her family. She endorses memory issues and concentration problems related to mental health. She struggles with executive functioning. She questioned if she has ADHD, and agreed to a psychiatric consult. Patient is on a wait list. Patient tried Zoloft and Wellbutrin in the past which were not effective. The patient is disabled. Dr. Baker from [facility] prescribes estradiol injections. Patient was seen by Urology for evaluation of left scrotal mass. Ultrasound demonstrated epididymitis. Patient completed course of ciprofloxacin yesterday with some side effects, but was able to tolerate the full course. Patient believes she may have had a UTI because she was having discomfort with urination which improved on antibiotics. She still has some symptoms. The area she thoug ht was a mass also seems smaller and just feels like soft tissue now. I contacted patient via the portal to have testing done for gonorrhea, chlamydia and a urine culture, and she is going to return to the lab for this. Denies fevers or chills. She also has a follow up with Urology. Today we further discussed issues with patient's back. Patient has described that when she turns quickly to the left she is off balance. Patient says intermittently legs give out. Patient describes being clumsy and tripping over things frequently. She is able to catch herself. Endorses intermittent tinglin g in bilateral lower extremities and occasionally will have this in her forearms and hands. Denies numbness. No recent head trauma or history of diagnosed concussion. No tick bites or skin rashes. Patient has history of migraines associated with aura of flashing lights in the right eye. No double vision or loss of vision. Denies eye pain. Patient has history of migraines. She endorses aura symptoms including flashing lights in the right eye that occurred 1 time. She was previously on Depakote when migraines were more frequent, but she has been off this for quite awhile. She treated with rizatriptan which is effective. Endorses pain in the lower back. Did not have x-rays done. Denies loss of bowel or bladder control. Rheumatoid factor, SAVANA and Lyme negative/normal. Denies known family history of MS. ROS: Constitutional: No fevers or chills. No weight loss. No night sweats. Respiratory: No cough Cardiovascular: No chest pain Neurologic: No syncope, seizures, tremors. See HPI Skin: No rash Psychiatric: See HPI Physical exam: Constitutional: Alert, in no distress. Normal gait. Extremities: Warm and well perfused. No clubbing, cyanosis or edema Neurologic:?Alert and oriented x 3, no focal deficits observed, CN 2-12 intact, pynexv-bldp-[id number] normal, sensation equal and symmetric, strength UE and LE 5/5 bilaterally, reflexes equal and symmetric.? Normal gait.? Patient able to heel walk, toe walk and walk heel-to-toe across the floor.? No pronator drift.? Negative Romberg. Spine: No midline spinal tenderness. +pain with extension. Full range of motion of the lumbar spine. Straight leg raises bilaterally cause leg pain and lower back pain. Lower extremity strength 5/5 bilaterally. Hips: No crepitus, full range of motion, strength 5/5 bilaterally. No tenderness [facility] Medical History (Updated 02/18/25 @ 11:46 by TAY Decker) Paresthesia Other intra-abdominal and pelvic swelling, mass and lump Left groin mass Transgender person on hormone therapy Abnormal TSH Memory difficulty Migraines Chronic allergic rhinitis Low back pain Multiple joint pain Bloating Alternating constipation and diarrhea PTSD (post-traumatic stress disorder) Memory loss Headache Depression Anxiety Imbalance GERD (gastroesophageal reflux disease) IBS (irritable bowel syndrome) Gallstone Surgical History Status post laparoscopic cholecystectomy History of laparoscopic cholecystectomy (~08/18/24) No pertinent past surgical history Family History Father Substance use Alcoholism Mother Thyroid disorder Other FH: mental illness Social History (Updated 02/18/25 @ 10:59 by Ashley Minor MA) Household Members: None Housing: Apartment Do you presently have visiting nurse or other home services: No Alcohol intake: current Alcohol intake frequency: former alcohol drinker Comment: Occassionaly Patient Tobacco Use Status: Never used Tobacco e-Cigarette/Vaping Use: Never Used Second Hand Smoke Exposure: No Substance Use Type: Marijuana service: No Current occupational status: disabled Cognitive needs: No Hearing needs: No Vision needs: Yes (glasses) Questionnaire PHQ-9 Over the last 2 weeks, how often have you been bothered by any of the following problems? 1. Little interest or pleasure in doing things: several days 2. Feeling down, depressed, or hopeless: more than half the days 3. Trouble falling or staying asleep, or sleeping too much: not at all 4. Feeling tired or having little energy: nearly every day 5. Poor appetite or overeating: more than half the days 6. Feeling bad about yourself - or that you are a failure or have let yourself or your family down: more than half the days 7. Trouble concentrating on things, such as reading the newspaper or watching television: more than half the days 8. Moving or speaking so slowly that other people could have noticed. Or the opposite - being so fidgety or restless that you have been moving around a lot more than usual: several days 9. Thoughts that you would be better off or of hurting yourself in some way: not at all Total score: 13 [id number] - PHQ-9 Billing: Patient declined-do not bill Source: Developed by Drs. Todd Packer, Griselda Rao, Honorio Lebron and colleagues, with an educational tali from [employer]. Thrive Questionnaire Date Thrive assessed: 02/18/25 I am a: Patient What is your living situation today?: I have a place to live, but I am worried about losing it in the future Within the past 12 months, did the food you bought not last and you didn't have the money to get more?: Often true Within the past 12 months, did you worry whether your food would run out before you got money to buy more?: Often true Do you have trouble paying for medicines?: I choose not to answer this question Do you have trouble getting transportation to medical appointments?: I choose not to answer this question Do you have trouble paying your heating and electricity bill?: Yes Do you have trouble taking care of your child, family member or friend?: No Do you have trouble with day-to-day activities such as bathing, preparing meals, shopping, managing finances, etc.?: Yes Are you currently unemployed and looking for a job?: Yes Are you interested in more education?: Yes Currently or been in a relationship where the following occur: I choose not to answer THRIVE Score: 4 AUDIT C Alcohol Use Questionnaire (AUDIT-C) 1. How often do you have a drink containing alcohol?: Monthly or less 2. How many drinks containing alcohol do you have on a typical day when you are drinking?: 1 or 2 3. How often do you have six or more drinks on one occasion?: Less than monthly Total Score: 2 Score Reviewed/Action Taken: No NATANAEL-7 AMB Questionnaire NATANAEL-7 Date NATANAEL - 7 assessed: 02/18/25 Feeling nervous, anxious, or on edge: 3 = Nearly every day Not being able to stop or control worryin = Nearly every day Worrying too much about different things: 3 = Nearly every day Trouble relaxin = More than half the days Being so restless that it is hard to sit still: 1 = Several days Becoming easily annoyed or irritable: 3 = Nearly every day Feeling afraid as if something awful might happen: 3 = Nearly every day Total NATANAEL-7 score (0-4 normal; 5-9 mild; 10-14 moderate; 15-21 severe): 18 Source: Developed by Drs. Todd Packer, Griselda Rao, Honorio Lebron and colleagues, with an educational tali from [employer]. NATANAEL-7 Assessment Billing NATANAEL-7 Assessment Tool: NATANAEL-7 Assessment 71588 Physical exam (Primary Care) Vital Signs: Last Vital Signs Pulse 80 02/18/25 11:04 BP 108/58 L 02/18/25 11:04 Pulse Ox 98 02/18/25 11:04 Oxygen Delivery Method Room Air 02/18/25 11:04 BMI result Body Mass Index 24.2 Tobacco/Smoking Status: Tobacco use Status Tobacco use date assessed 02/18/25 02/18/25 11:07 Patient Tobacco Use Status Never used Tobacco 02/18/25 11:07 e-Cigarette/Vaping Use Never Used 02/18/25 11:07 PHQ-9: PHQ-9 Score PHQ-9: Total score 13 02/18/25 11:51 Thrive Assessment: Date of Thrive Assessment Date Thrive assessed 02/18/25 02/18/25 11:07 Currently or been in a relationship where the following occur: I choose not to answer Coding Level of Care Code Est Pt Level 5 (11983) Complex EM visit Add On G2211 Diagnoses Migraines G43.909 Alternating constipation and diarrhea R19.8 Anxiety F41.9 Depression F32.A Left testicular pain N50.812 Low back pain M54.50 Weakness R53.1 Paresthesia R20.2 Additional Codes NATANAEL-7 Assessment Billing - NATANAEL-7 Assessment Tool: NATANAEL-7 Assessment 68795 ([id number]) Time Spent (min) 45 Comment Direct patient care, chart review, completing documentation Assessment & Plan Assessment & Plan (1) Migraines: Code(s): G43.909 - Migraine, unspecified, not intractable, without status migrainosus Category: Medical (2) Alternating constipation and diarrhea: Code(s): R19.8 - Other specified symptoms and signs involving the digestive system and abdomen Category: Medical (3) Anxiety: Code(s): F41.9 - Anxiety disorder, unspecified Category: Medical (4) Depression: Code(s): F32.A - Depression, unspecified Category: Medical (5) Left testicular pain: Code(s): N50.812 - Left testicular pain Category: Medical (6) Low back pain: Code(s): M54.50 - Low back pain, unspecified Category: Medical (7) Weakness: Code(s): R53.1 - Weakness (8) Paresthesia: Code(s): R20.2 - Paresthesia of skin Category: Medical Plan Pleasant 29-year-old female with significant healthcare anxiety superimposed on chronic anxiety, depression and PTSD. Patient is seeing her therapist, and she is going to be seeing a another therapist in the office when her therapist leaves. She is on the wait list for a psychiatrist. She has a consult scheduled for Gastroenterology. Patient completed ciprofloxacin. She will have urine culture and testing for going to rehab chlamydia done. Follow up with Urology. We reviewed differential for chronic fatigue, lower extremity weakness, paresthesias. She will have lab work done, and I will order MRI of the head and neck for MS evaluation. She will have x-rays of the lower back and left hip and pelvis completed. Follow up in 2 months. Orders: Orders Vitamin B12 Today R20.2 - Paresthesia of skin, R79.89 - Other specified abnormal findings of blood chemistry, Z91.89 - Other specified personal risk factors, not elsewhere classified Complete Blood Count Auto Diff Today R20.2 - Paresthesia of skin, R79.89 - Other specified abnormal findings of blood chemistry Comprehensive Met. Panel Today R20.2 - Paresthesia of skin, R79.89 - Other specified abnormal findings of blood chemistry Vitamin D 25-OH (D2 and D3) Today M85.80 - Other specified disorders of bone density and structure, unspecified site, R20.2 - Paresthesia of skin, R79.89 - Other specified abnormal findings of blood chemistry Erythrocyte Sedimentation Rate Today R20.2 - Paresthesia of skin, R79.89 - Other specified abnormal findings of blood chemistry Creatine Kinase Total Today R20.2 - Paresthesia of skin, R79.89 - Other specified abnormal findings of blood chemistry TSH reflex Free T4 Today R20.2 - Paresthesia of skin, R79.89 - Other specified abnormal findings of blood chemistry
[2025-02-18 11:04] VITALS: BP 108/58; PULSE 80; O2SAT 98; BMI 24.2
--- OUTSIDE RECORDS SUMMARY | 2025-02-18 12:25 | XMS_ITS | Clinical Summary ---
Author Organization [facility] Address [address] [place] [address] Care Team Providers Care Gas Burner Operator Name Role Phone Unavailable Primary Care [...] Influencers of Health Screening 12/10/2023 COVID-19 Vaccine (2023-2 5 season) 2024 Influenza Vaccine (Season Ended) 2025 HIB Vaccines Aged Out No longer eligi [...] age to complete this topic Meningococcal B Vaccine Aged Out No l onger eligible based on patient's age to complete [...]
== END 2025-02-18 11:54 | disposition home or self-care (01) ==
LOC: HO.HMCFM 10:30
PROVIDERS: PCP Physician Assistant Medical; Visit Provider Physician Assistant Medical
DX: G43.909 Migraine, unspecified, not intractable, without status migrainosus (principal); R19.8 Other specified symptoms and signs involving the digestive system and abdomen; F41.9 Anxiety disorder, unspecified; F32.A Depression, unspecified; N50.812 Left testicular pain; M54.50 Low back pain, unspecified; R53.1 Weakness; R20.2 Paresthesia of skin

== ENCOUNTER → 2025-02-18 10:29 | Outpatient (BNVA) | payer OTHER, SELFPAY | PROVIDERS: PCP Physician Assistant Medical; Visit Provider Physician Assistant Medical | DX: G43.909 Migraine, unspecified, not intractable, without status migrainosus (principal); R19.8 Other specified symptoms and signs involving the digestive system and abdomen; F41.9 Anxiety disorder, unspecified; F32.A Depression, unspecified; M54.50 Low back pain, unspecified; R53.1 Weakness; R20.2 Paresthesia of skin; Z91.89 Other specified personal risk factors, not elsewhere classified | CPT/HCPCS: 96127; 99212 ==

== ENCOUNTER 2025-02-26 09:03 | Outpatient (REF) | payer OTHER, SELFPAY ==
--- OUTSIDE RECORDS SUMMARY | 2025-02-26 09:33 | XMS_ITS | Clinical Summary ---
Author Organization [facility] Address [address] [place] [address] Care Team Providers Care Quality Nurse Name Role Phone Unavailable Primary Care Provider [...]
--- OUTSIDE RECORDS SUMMARY | 2025-02-26 09:33 | XMS_ITS | Clinical Summary ---
Author Organization [facility] Address [address] [place] [address] Care Team Providers Care Or Scrub Tech Name Role Phone Unavailable Primary Care Provider [...]
[2025-02-26 09:49] LABS: Basophils Percent Auto 0.3 % (0-2); Eosinophils Absolute Auto 0.1 X10*3/uL (0.0-0.4); Eosinophils Percent Auto 1.3 % (0-4); Hematocrit 38.3 % (37.0-47.0); Hemoglobin 13.1 g/dl (12.0-16.0); Imm Gran Abs Auto 0.04 X10*3/uL (0.00-0.03); Imm Gran Pct Auto 0.4 % (0.0-0.4); Lymphocytes Absolute Auto 4.1 X10*3/uL (1.2-4.9); Lymphocytes Percent Auto 39.1 % (20-40); MANUAL DIFF FLAG NO; Mean Corpuscular HGB Conc 34.2 g/dl (31.0-35.0); Mean Corpuscular Hemoglobin 30.2 pg (27.0-33.0); Mean Corpuscular Volume 88.2 fL (80.0-98.0); Mean Platelet Volume 10.9 fL (9.4-12.3); Monocytes Absolute Auto 1.2 X10*3/uL (0.1-1.2); Monocytes Percent Auto 11.6 % (2-11); Neutrophils Percent Auto 47.3 % (45-73); Platelet Count 233 X10*3/uL (160-400); Red Blood Count 4.34 X10*6/uL (4.20-5.50); White Blood Count 10.5 X10*3/uL (4.8-10.8)
[2025-02-26 10:34] LABS: Erythrocyte Sedimentation Rate 7 MM/HR (0-20)
[2025-02-26 10:42] LABS: Alanine Aminotransferase 37 U/L (0-31); Albumin Level 4.3 g/dL (3.5-5.0); Alkaline Phosphatase 44 U/L (39-117); Anion Gap 12 (12-20); Aspartate Amino Transferase 30 U/L (5-31); Bilirubin Total 0.4 mg/dL (0.0-1.0); Blood Urea Nitrogen 10 mg/dL (9-16); Calcium 9.3 mg/dL (8.4-10.2); Carbon Dioxide 24 mmol/L (22-29); Chloride 108 mmol/L (96-108); Estimated Glomerular Filt Rate > 60; Glucose Fasting 94 mg/dL (60-99); Potassium 4.4 mmol/L (3.3-5.1); Sodium 140 mmol/L (135-145); Total Protein 7.2 g/dL (6.5-8.0)
[2025-02-26 10:44] LABS: Vitamin B12 870 pg/mL (200-900)
[2025-02-26 10:48] LABS: TSH reflex Free T4 3.62 uIU/mL (0.32-4.0)
[2025-02-26 10:54] LABS: Amphetamine Screen Urine Not Detected (Not Detect); Barbiturates, Urine Not Detected (Not Detect); Benzodiazepines Screen Urine Not Detected (Not Detect); Buprenorphine Scr Not Detected (Not Detect); Cannabinoid Screen Urine POSITIVE (Not Detect); Cocaine Screen Urine Not Detected (Not Detect); Fentanyl, urine Not Detected (Not Detect); Methadone Screen, Urine Not Detected (Not Detect); Opiate Screen Urine Not Detected (Not Detect); Oxycodone Screen Urine Not Detected (Not Detect); Phencyclidine Screen Urine Not Detected (Not Detect)
[2025-02-26 10:59] LABS: Appearance Urine Clear; Color Urine Yellow; Glucose Urine UA Negative (Negative); Leukocyte Esterase Urine Negative (Negative); Nitrite Urine Negative (Negative); UMIC TRIGGER UA YES; Urine Blood Trace (Negative); Urine Ketones Negative (Negative); Urine Protein Negative (Neg-Trace)
[2025-02-26 11:04] LABS: Bacteria Urine None Seen (None Seen); Hyaline Casts Urine 0-2 /LPF (0-2); RBC Urine 0-2 /HPF (0-2); Squamous Epithelial Cell Urine 0-2 /HPF (0-2); WBC Urine 0-5 /HPF (0-5)
[2025-03-03 15:48] LABS: Vitamin D 25-OH, D2 <4 ng/mL; Vitamin D 25-OH, D3 17 ng/mL; Vitamin D 25-OH, Total 17 ng/mL (30-100)
== END 2025-02-26 09:04 | disposition home or self-care (01) ==
LOC: HO.LAB 09:03
PROVIDERS: Absent Provider Physician Assistant Medical; PCP Physician Assistant Medical; Visit Provider Registered Nurse School
DX: R79.89 Other specified abnormal findings of blood chemistry (principal); R20.2 Paresthesia of skin; R39.9 Unspecified symptoms and signs involving the genitourinary system; Z91.89 Other specified personal risk factors, not elsewhere classified; M85.80 Other specified disorders of bone density and structure, unspecified site; F41.1 Generalized anxiety disorder; F90.9 Attention-deficit hyperactivity disorder, unspecified type
CPT/HCPCS: 36415; 80053; 80307; 81001; 82306; 82550; 82607; 84443; 85025; 85652; 87086

== ENCOUNTER 2025-03-21 19:39 | Outpatient (REF) | payer OTHER, SELFPAY ==
--- NOTE | ~2025-03-21 | MR_ITS ---
EXAMINATION: MR CERVICAL SPINE WITHOUT CONTRAST CLINICAL INFORMATION: Paresthesias of the skin. Fatigue. Concerning demyelinating disease. COMPARISON: None available. TECHNIQUE: MRI of the cervical spine was obtained using routine sequences without contrast. FINDINGS: Craniocervical junction is intact with normal alignment. No bone marrow STIR signal abnormality. Disc desiccation, C5-6 with a focal hyperintense T2 signal in the posterior intervertebral disc. Disc desiccation C3-4. Disc desiccation C3-4. Cervical spinal cord caliber and signal is normal. There is normal alignment. C2-3: No disc herniation. No neuroforamina stenosis. C3-4: No disc herniation. No neuroforamina stenosis. C4-5: No disc herniation. No neuroforamina stenosis. C5-6: Left subarticular broad-based disc herniation resulting in ventral indentation to the thecal sac. No cord compression. Left neuroforamina narrowing. C6-7: No disc herniation. No neuroforamina stenosis. Small right perineural cysts. C7-T1: No disc herniation. No neuroforamina stenosis. Right perineural cysts. Questionable small disc protrusion T3-4 level. No prevertebral compartment hematoma, mass or fluid collection. Flow-void signal within the main vessels is normal. Left vertebral artery slightly dominant. Nonspecific prominent cervical lymph nodes MR/MR cervical spine wo con IMPRESSION: No cord signal abnormality to suggest demyelinating disease. No cord edema and or myelopathy. Left subarticular disc herniation C5-6 resulting in left neuroforamina narrowing. No cord compression. Nonspecific prominent cervical lymph nodes. Electronically signed by: Chano Washburn MD 03/22/2025 07:42 AM EDT
--- NOTE | ~2025-03-21 | MR_ITS ---
EXAMINATION: MR BRAIN WITHOUT CONTRAST CLINICAL INFORMATION: Paresthesia of the skin. COMPARISON: None available. TECHNIQUE: MRI of the brain was obtained using routine sequences without contrast. FINDINGS: No restricted diffusion. No acute intracranial hemorrhage, mass effect, midline shift, hydrocephalus or herniation. 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 Oh-white matter differentiation is normal. Posterior cranial fossa contents demonstrated a borderline position of the cerebellar tonsils. Sellar/suprasellar region demonstrated no signal abnormality or gross masses. Flow-void signal within the main cerebral vessels is normal. MR/MR head/brain wo con IMPRESSION: No acute brain abnormality. No gross White matter disease. Borderline position cerebellar tonsils. Electronically signed by: Chano Washburn MD 03/22/2025 07:36 AM EDT
== END 2025-03-21 19:40 | disposition home or self-care (01) ==
LOC: HO.MRI 19:39
PROVIDERS: PCP Physician Assistant Medical; Visit Provider Physician Assistant Medical
DX: R20.2 Paresthesia of skin (principal); R53.1 Weakness; R53.82 Chronic fatigue, unspecified
CPT/HCPCS: 70551; 72141

== ENCOUNTER → 2025-03-21 19:45 | Outpatient (BNV) | payer OTHER, SELFPAY | PROVIDERS: PCP Physician Assistant Medical; Visit Provider Radiology Diagnostic Radiology | DX: R53.1 Weakness (principal); R20.2 Paresthesia of skin | CPT/HCPCS: 70551; 72141 ==

== ENCOUNTER 2025-04-14 12:30 | Outpatient (REF) | payer OTHER, SELFPAY ==
--- NOTE | ~2025-04-14 | XR_ITS ---
CLINICAL HISTORY: M25.50 - Pain in unspecified joint AP pelvis, Two views of the left hip. COMPARISON: None FINDINGS: Pelvic ring appears intact. Pelvic phleboliths present. Visualized lower lumbar spine is unremarkable. Visualized portions of the contralateral right hip appear intact. Left hip: Visualized portions of the proximal left femur appears intact. No trabecular disruption or cortical discontinuity. Femoral head is appropriately seated in the acetabulum. Small os acetabuli present. IMPRESSION: 1. No radiographic evidence of acute injury to the pelvis and left hip. No significant degenerative changes. This document has been electronically signed by: Juventino Bejarano MD on 04/14/2025 15:25:22
--- NOTE | ~2025-04-14 | XR_ITS ---
CLINICAL HISTORY: M54.50 - Low back pain, unspecified Three views of the lumbar spine. COMPARISON: None FINDINGS: Five [id number] lumbar type vertebral bodies. Normal vertebral body alignment. Vertebral body heights are maintained. No evidence of acute vertebral body injury. Vertebral disc space heights are maintained. No significant degenerative changes. Visualized portions of the bones of the pelvis appear intact. Cholecystectomy clips. IMPRESSION: 1. No radiographic evidence of acute injury to the lumbar spine. No significant degenerative changes. This document has been electronically signed by: Juventino Bejarano MD on 04/14/2025 15:26:04
--- OUTSIDE RECORDS SUMMARY | 2025-04-14 13:01 | XMS_ITS | Clinical Summary ---
Author Organization [facility] Address [address] [place] [address] Care Team Providers Care Classifying Machine Operator Name Role Phone Unavailable Primary [...]
[2025-04-14 14:46] LABS: TSH reflex Free T4 5.97 uIU/mL (0.32-4.0)
[2025-04-14 15:28] LABS: Free T4 (Free Thyroxine) 1.15 ng/dL (0.71-1.85)
== END 2025-04-14 12:31 | disposition home or self-care (01) ==
LOC: HO.XRAY 12:30
PROVIDERS: PCP Physician Assistant Medical; Visit Provider Physician Assistant Medical
DX: M25.50 Pain in unspecified joint (principal); M54.50 Low back pain, unspecified; R79.89 Other specified abnormal findings of blood chemistry; R20.2 Paresthesia of skin
CPT/HCPCS: 36415; 72100; 73502; 84439; 84443

== ENCOUNTER → 2025-04-14 12:36 | Outpatient (BNV) | payer OTHER, SELFPAY | PROVIDERS: PCP Physician Assistant Medical; Visit Provider Radiology Diagnostic Radiology | DX: M25.552 Pain in left hip (principal); M54.50 Low back pain, unspecified | CPT/HCPCS: 72100; 73502 ==

== ENCOUNTER 2025-04-15 14:14 | Outpatient (AMB) | payer OTHER, SELFPAY ==
--- NOTE | 2025-04-15 14:22 | A.OFFPC_ITS ---
Vital Signs 04/15/25 14:25 Height 5 ft 4 in Weight 131 lb BMI 22.5 BP 100/62 Blood Pressure Location Lt brachial Position Sitting Pulse 93 Pulse Source Pulse Oximeter Pulse Oximetry (%) 98 Oxygen Delivery Method Room Air Intake Visit Reasons: follow up 30 minutes Intake Note: Aracelis presents in the office today for a follow up. Needs refill of the rizatriptan. Allergies pollen extracts Allergy (Mild, Verified 04/15/25 14:23) Unknown dog dander Allergy (Unknown, Verified 04/15/25 14:23) Unknown house dust mite Allergy (Unknown, Verified 04/15/25 14:23) Unknown Tobacco use date assessed: 04/15/25 Dental Screening Dental Screen Date: 04/15/25 Did you have a dental visit in the last 12 months?: No Did you have a dental problem in the last 6 months where you did not have access to dental care?: No Was dental information given to patient?: Patient has dentist HPI HPI Comments History of Present Illness Details This is a 29-year-old transgender female presenting for follow up. The patient uses she/her pronouns. She has an appointment scheduled for gastroenterology for IBS like symptoms for the past 11 years which we previously discussed. She endorses IBS like symptoms for 11 years. Bloating, 2-3 BMs if at home, if she is out she feels like she has to go more often than this. More often than not she has diarrhea and sometimes will pass small pellets. No recent blood in stools, but she has had blood in stools which prompted an evaluation with a interlocking installer. She does not remember where she was seen. Denies family history of colon cancer. Rectal exam 06/29/2024 normal. She was scheduled for a colonoscopy a year ago, and she was given the prep, but ultimately there was an insurance issue, and it did not get done. The patient had a CT scan of the abdomen and pelvis on 06/29/2024 prior to cholecystectomy. It was unremarkable aside from gallbladder findings. She has PTSD, major depression, NATANAEL. Patient is estranged from her family. She endorses memory issues and concentration problems related to mental health. She struggles with executive functioning. She has a new psychiatrist, Dr. Cortes, at [facility]. Her new therapist is Don Dumont. She received a slat basket maker's notice that her landlord is trying to evict her. She is spending most of her time at a friend's house in [place]. She wants to get back to work. 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 She was started on Adderall. Reports decreased appetite on Adderall and because of increased stress and anxiety. She has 10 lb weight loss. Patient tried Zoloft and Wellbutrin in the past which were not effective. The patient is disabled. Dr. Baker from [facility] prescribes estradiol injections. She has not been receiving them as consistently due to housing issues. TSH is mildly elevated. Patient was seen by Urology for evaluation of left scrotal mass. Ultrasound demonstrated epididymitis. Patient completed ciprofloxacin and reports these issues resolved however she still has ongoing issues with bladder emptying. She is going to contact the urologist to follow up. Patient has described that when she turns quickly to the left she is off balance. Patient says intermittently legs give out. Patient describes being clumsy and tripping over things frequently. She is able to catch herself. Endorses intermittent tingling in bilateral lower extremities and occasionally will have this in her forearms and hands. Denies numbness. No recent head trauma or history of diagnosed concussion. No tick bites or skin rashes. Patient has history of migraines associated with aura of flashing lights in the right eye. No double vision or loss of vision. Denies eye pain. Patient has history of migraines. She endorses aura symptoms including flashing lights in the right eye that occurred 1 time. She was previously on Depakote when migraines were more frequent, but she has been off this for quite awhile. She treated with rizatriptan which is effective. Endorses pain in the lower back. Denies loss of bowel or bladder control. Rheumatoid factor, SAVANA and Lyme negative/normal. Denies known family history of MS. X-ray of the lumbar spine 04/14/2025 was normal. X-ray of the pelvis and left hip was also normal. MRI of the cervical spine showed left subarticular disc herniation at C5-C6 resulting in left neuroforaminal narrowing. MRI of the brain showed no abnormalities and borderline position of the cerebellar tonsils. Vitamin-D level was deficient at 17, and the patient was started on high dose vitamin-D. TSH has fluctuated. Yesterday it was 5.97 which is mildly elevated. Patient also message due to gum swelling/dental issues. She received the list, and she has to contact a dentist to schedule an appointment. She started using mouthwash and took a break from brushing because she felt the gumline was irritated, and this has helped. She was having difficulty opening her mouth, and this resolved. No fevers or chills or swelling. The pain has subsided. ROS: Constitutional: No fevers or chills. No night sweats. Respiratory: No cough Cardiovascular: No chest pain Neurologic: No syncope, seizures, tremors. See HPI Skin: No rash Psychiatric: See HPI Physical exam: Constitutional: Alert, in no distress. Head: Normocephalic. Mouth/throat: Evidence of some dental decay and gum recession and mild erythema of the gums on the lower left. No visible abscess or swelling. No discharge. Neck: Supple, Full range of motion. No lymphadenopathy. Extremities: Warm and well perfused. No clubbing, cyanosis or edema. Intact peripheral pulses bilaterally. Psychiatric: Difficulty with eye contact at times. Cooperative. Clear speech. [facility]LY [facility], [facility] Medical History (Updated 04/15/25 @ 15:32 by TAY Decker) Pain, dental ADHD Vitamin D deficiency Chronic fatigue Weakness Paresthesia Other intra-abdominal and pelvic swelling, mass and lump Left groin mass Transgender person on hormone therapy Abnormal TSH Memory difficulty Migraines Chronic allergic rhinitis Low back pain Multiple joint pain Bloating Alternating constipation and diarrhea PTSD (post-traumatic stress disorder) Memory loss Headache Depression Anxiety Imbalance GERD (gastroesophageal reflux disease) IBS (irritable bowel syndrome) Gallstone Surgical History Status post laparoscopic cholecystectomy History of laparoscopic cholecystectomy (~08/18/24) No pertinent past surgical history Family History Father Substance use Alcoholism Mother Thyroid disorder Other FH: mental illness Social History (Updated 04/15/25 @ 14:25 by Ashley Minor MA) Household Members: None Housing: Apartment Do you presently have visiting nurse or other home services: No Alcohol intake: current Alcohol intake frequency: former alcohol drinker Comment: Occassionaly Patient Tobacco Use Status: Never used Tobacco e-Cigarette/Vaping Use: Never Used Second Hand Smoke Exposure: No Substance Use Type: Marijuana service: No Current occupational status: disabled Cognitive needs: No Hearing needs: No Vision needs: Yes (glasses) Questionnaire Thrive Questionnaire Date Thrive assessed: 11/16/24 I am a: Patient What is your living situation today?: I have a place to live, but I am worried about losing it in the future Within the past 12 months, did the food you bought not last and you didn't have the money to get more?: Often true Within the past 12 months, did you worry whether your food would run out before you got money to buy more?: Often true Do you have trouble paying for medicines?: I choose not to answer this question Do you have trouble getting transportation to medical appointments?: I choose not to answer this question Do you have trouble paying your heating and electricity bill?: Yes Do you have trouble taking care of your child, family member or friend?: No Do you have trouble with day-to-day activities such as bathing, preparing meals, shopping, managing finances, etc.?: Yes Are you currently unemployed and looking for a job?: Yes Are you interested in more education?: Yes Currently or been in a relationship where the following occur: I choose not to answer THRIVE Score: 4 NATANAEL-7 AMB Questionnaire NATANAEL-7 Date NATANAEL - 7 assessed: 02/18/25 Source: Developed by Drs. Todd Packer, Griselda Rao, Honorio Lebron and colleagues, with an educational tali from [email or web address]. Physical exam (Primary Care) Vital Signs: Last Vital Signs Pulse 93 04/15/25 14:25 BP 100/62 04/15/25 14:25 Pulse Ox 98 04/15/25 14:25 Oxygen Delivery Method Room Air 04/15/25 14:25 BMI result Body Mass Index 22.5 Tobacco/Smoking Status: Tobacco use Status Tobacco use date assessed 04/15/25 04/15/25 14:28 Patient Tobacco Use Status Never used Tobacco 04/15/25 14:28 e-Cigarette/Vaping Use Never Used 04/15/25 14:28 Thrive Assessment: Date of Thrive Assessment Date Thrive assessed 11/16/24 04/15/25 14:28 Currently or been in a relationship where the following occur: I choose not to answer Coding Level of Care Code Est Pt Level 5 (00097) Complex EM visit Add On G2211 Diagnoses Migraines G43.909 Alternating constipation and diarrhea R19.8 Anxiety F41.9 Depression F32.A Low back pain M54.50 Weakness R53.1 Paresthesia R20.2 Vitamin D deficiency E55.9 Abnormal TSH R79.89 ADHD F90.9 Pain, dental K08.89 Time Spent (min) 46 Comment Chart review, direct patient care, completing documentation Assessment & Plan Assessment & Plan (1) Migraines: Code(s): G43.909 - Migraine, unspecified, not intractable, without status migrainosus Category: Medical (2) Alternating constipation and diarrhea: Code(s): R19.8 - Other specified symptoms and signs involving the digestive system and abdomen Category: Medical (3) Anxiety: Code(s): F41.9 - Anxiety disorder, unspecified Category: Medical (4) Depression: Code(s): F32.A - Depression, unspecified Category: Medical (5) Low back pain: Code(s): M54.50 - Low back pain, unspecified Category: Medical (6) Weakness: Code(s): R53.1 - Weakness (7) Paresthesia: Code(s): R20.2 - Paresthesia of skin Category: Medical (8) Vitamin D deficiency: Code(s): E55.9 - Vitamin D deficiency, unspecified Category: Medical (9) Abnormal TSH: Code(s): R79.89 - Other specified abnormal findings of blood chemistry Category: Medical (10) ADHD: Code(s): F90.9 - Attention-deficit hyperactivity disorder, unspecified type Category: Medical (11) Pain, dental: Code(s): K08.89 - Other specified disorders of teeth and supporting structures Category: Medical Plan Pleasant 29-year-old female with significant healthcare anxiety superimposed on chronic anxiety, depression and PTSD and ADHD. Patient will continue therapy, and she is seeing a psychiatrist now. Socioeconomic barriers noted. I expressed concerns about interval weight loss and decreased appetite in the setting of increased anxiety and taking a stimulant. She has a follow up in 1 month with her psychiatrist. We discussed ways of increasing high calorie and protein foods in her diet. She has a consult scheduled for Gastroenterology. Monitor TSH and check thyroid autoantibodies. Finish vitamin-D supplement and repeat labs in 10 weeks. Ongoing paresthesias, back pain and subjective weakness. Ordered EMG is and plan to refer to Neurology once these are resulted. Patient does notice some of the symptoms are better since starting vitamin-D. She will contact a dentist to schedule an appointment. Advised to call if she has fevers, chills, worsening pain or swelling. Sent chlorhexidine oral rinse. Continue current regimen for migraines. Follow up in 3 months. Medications: New chlorhexidine gluconate 0.12% wish for 30 seconds with 15 mL (one capful) of undiluted oral rinse after toothbrushing, then expectorate; repeat twice daily (morning and evening) until symptoms resolve 15 mL buccal BID 300 mL 0RF Refilled rizatriptan take 1-2 tablets at onset of headache; if no relief, may repeat 1-2 tablets after at least 2 hrs. maximum of 20 mg per 24 hours 10 tabs 3RF
[2025-04-15 14:25] VITALS: BP 100/62; PULSE 93; O2SAT 98; BMI 22.5
--- OUTSIDE RECORDS SUMMARY | 2025-04-15 16:53 | XMS_ITS | Clinical Summary ---
Author Organization [facility] Address [address] [place] [address] Care Team Providers Care Director Of Online Education Name Role Phone Unavailable Primary Care Provider [...]
== END 2025-04-15 15:14 | disposition home or self-care (01) ==
LOC: HO.HMCFM 14:15
PROVIDERS: PCP Physician Assistant Medical; Visit Provider Physician Assistant Medical
DX: G43.909 Migraine, unspecified, not intractable, without status migrainosus (principal); R19.8 Other specified symptoms and signs involving the digestive system and abdomen; F41.9 Anxiety disorder, unspecified; F32.A Depression, unspecified; M54.50 Low back pain, unspecified; R53.1 Weakness; R20.2 Paresthesia of skin; E55.9 Vitamin D deficiency, unspecified; R79.89 Other specified abnormal findings of blood chemistry; F90.9 Attention-deficit hyperactivity disorder, unspecified type; K08.89 Other specified disorders of teeth and supporting structures

== ENCOUNTER → 2025-04-15 14:14 | Outpatient (BNVA) | payer OTHER, SELFPAY | PROVIDERS: PCP Physician Assistant Medical; Visit Provider Physician Assistant Medical | DX: F43.10 Post-traumatic stress disorder, unspecified (principal); F32.A Depression, unspecified; K21.9 Gastro-esophageal reflux disease without esophagitis; G43.909 Migraine, unspecified, not intractable, without status migrainosus; R19.8 Other specified symptoms and signs involving the digestive system and abdomen; F41.9 Anxiety disorder, unspecified; M54.50 Low back pain, unspecified; R53.1 Weakness; R20.2 Paresthesia of skin; E55.9 Vitamin D deficiency, unspecified; R79.89 Other specified abnormal findings of blood chemistry; F90.9 Attention-deficit hyperactivity disorder, unspecified type; K08.89 Other specified disorders of teeth and supporting structures | CPT/HCPCS: 99212 ==

== ENCOUNTER 2025-08-09 13:11 | Emergency (ER) | payer OTHER, SELFPAY ==
[2025-08-09 13:31] VITALS: BP 124/88; PULSE 100; RESP 16; TEMP 36.7; O2SAT 97; BMI 26.9
--- NOTE | 2025-08-09 13:31 | ED_ITS ---
HPI - General Adult General Chief complaint: Body Fluid Exposure Stated complaint: needle exposure on saturday Time Seen by Provider: 08/09/25 13:31 Source: patient Mode of arrival: ambulatory Limitations: no limitations History of Present Illness ED Provider: Marisel Muñoz PA-C HPI narrative: Patient is a 30 year old assigned male, now female, at with a history of migraines, gallstones, depression, anxiety, and PTSD presenting to the emergency department today after an accidental needle stick. Patient states that she was stuck by a needle on 08/06/2025. Patient states that she is not sure which hand she was stuck on and it hardly karina any blood. Patient states that she knows the individual whose needle it was an it was a draw up only needle - not anything that has stuck the other individual. Patient states that she called and spoke with the harm reduction center and misunderstood that she could wait until today to be started on post-exposure prophylaxis. She states that she confirmed with the contact individual that she does not have any transmissible diseases. Onset (ago): day(s) (2) Related Data Home Medications ?Medication ?Instructions ?Recorded ?Confirmed estradiol valerate 20 mg/mL 5 mg IM FR 06/29/24 intramuscular oil ibuprofen 200 mg tablet 400 mg PO Q6H PRN Migraine H eadache 06/29/24 07/23/24 cetirizine 10 mg capsule (Zyrtec) 10 mg PO DAILY PRN 0 01/11/25 fluticasone furoate 27.5 1 spray intranasal DAILY 02/02 mcg/actuation nasal spray,suspension (Flonase Sensimist) dextroamphetamine-amphetamine ER 15 mg PO QAM 04/15/25 04/15/25 15 mg 24hr capsule,extend release (Adderall XR) Previous Rx's ?Medication ?Instructions ?Recorded albuterol sulfate 90 mcg/actuation 2 puff inhalation Q 4-6H #8.5 grams 09/14/24 aerosol inhaler cholecalciferol (vitamin D3) 1,250 1,250 mcg PO QWEEK 12 weeks #12 03/05/25 mcg (50,000 unit) capsule caps chlorhexidine gluconate 0.12 % 15 ml buccal BID #300 m L 04/15/25 mouthwash rizatriptan 5 mg tablet See Rx Instructions PO .COMP KULDIP 04/15/25 #10 tabs Allergies Allergy/AdvReac Type Severity Reaction Status Date / Time pollen extracts Allergy Mild Unknown Verified 08/09/25 13:32 dog dander Allergy Unknown Unknown Verified 08/09/25 13:32 house dust mite Allergy Unknown Unknown Verified 08/09/25 13:32 Review of Systems 2 Constitutional: Constitutional: Reports as per HPI Eyes: Eyes: Reports as per HPI ENT: Reports as per HPI Cardiovascular: Cardiovascular: Reports as per HPI Respiratory: Respiratory: Reports as per HPI Gastrointestinal: Gastrointestinal: Reports as per HPI Genitourinary: Genitourinary: Reports as per HPI Musculoskeletal: Musculoskeletal: Reports as per HPI Integumentary/Breasts: Skin/Breast: Reports as per HPI Neurologic: Reports as per HPI Psychiatric: Psychiatric: Reports as per HPI Endocrine: Endocrine: Reports as per HPI Hematologic/Lymphatic: Hematologic/Lymphatic: Reports as per HPI Allergic/Immunologic: Allergic/Immunologic: Reports as per HPI [facility] Past Medical History Attestation statement: The following information was validated with the patient. Source: old records reviewed and nursing notes reviewed Medical History Pain, dental ADHD Vitamin D deficiency Chronic fatigue Weakness Paresthesia Other intra-abdominal and pelvic swelling, mass and lump Left groin mass Transgender person on hormone therapy Abnormal TSH Memory difficulty Migraines Chronic allergic rhinitis Low back pain Multiple joint pain Bloating Alternating constipation and diarrhea PTSD (post-traumatic stress disorder) Memory loss Headache Depression Anxiety Imbalance GERD (gastroesophageal reflux disease) IBS (irritable bowel syndrome) Gallstone Surgical History Status post laparoscopic cholecystectomy History of laparoscopic cholecystectomy (~08/18/24) No pertinent past surgical history Family History Family History Father Substance use Alcoholism Mother Thyroid disorder Other FH: mental illness Social History Social History Household Members: None Housing: Apartment Do you presently have visiting nurse or other home services: No Alcohol intake: current Alcohol intake frequency: former alcohol drinker Comment: Occassionaly Patient Tobacco Use Status: Never used Tobacco e-Cigarette/Vaping Use: Never Used Second Hand Smoke Exposure: No Substance Use Type: Marijuana Advance Directives: No Advance Directives Information Provided: Yes Do you have a plan to hurt others: No Plan service: No Current occupational status: disabled Cognitive needs: No Hearing needs: No Vision needs: Yes (glasses) Physical Exam ED Vital Signs: Vital Signs - 24 hr 08/09/25 13:31 08/09/25 14:00 Temperature 98.0 F 98.0 F Pulse Rate 100 100 Respiratory Rate 16 16 Blood Pressure 124/88 124/88 Pulse Oximetry 97 97 BMI result Body Mass Index 26.9 Const General: cooperative, no acute distress, alert and awake Nutritional Appearance: well nourished Orientation/consciousness: patient oriented x3 HENMT Head: Yes normal to inspection and Yes atraumatic Ears: hearing grossly normal bilaterally and external ears normal General nose exam: Normal external nose present, no nasal discharge noted and no epistaxis Face and sinus: Yes normal facial exam, No abrasion and No laceration Mouth: Normal oral and palatal mucosa present, no drooling and no muffled voice Eyes General: appearance normal, both eyes and all related structures Periorbital: periorbital findings normal Eyelids: Yes eyelids normal Conjunctivae: conjunctivae normal Pupils: Equal, round and reactive pupils present EOM: EOMs intact bilaterally Neck Neck: Yes normal visual inspection and Yes full ROM Resp Effort & Inspection: normal respiratory effort and able to speak in complete sentences Neuro General: patient oriented x3, moves all extremities and CN's II-XI intact bilaterally Cranial nerves: Yes Equal, round and reactive pupils present Cognition (Neuro): normal cognition Extrem General: Yes normal to inspection, Yes full ROM and Yes capillary refill normal Psych Appearance: grossly normal Mental Status: mental status grossly normal Affect: normal affect Attitude: cooperative Thought process: Normal thought process present Thought content: Normal thought content present Insight: Good insight present (Psych) Medical Decision Making Medical Decision Making MDM Narrative: Patient is a 30 year old assigned male, now female, at with a history of migraines, gallstones, depression, anxiety, and PTSD presenting to the emergency department today after an accidental needle stick. Patient's physical exam was unremarkable. Patient's CBC showed a mildly elevated WBC count which is likely a stress reaction. Patient's CMP unremarkable. Patient's HIV + Hepatitis testing is pending. Patient's overall risk of dorota a transmissible disease is very low however, through shared decision making, we determined we would get post- exposure lab work and the patient would be called if anything was positive. I explained my physical exam findings to the patient. I answered all questions asked by the patient. I stressed the importance of the patient taking her medication as directed (either prescribed or as the over the counter packaging recommends). I stressed the importance of the patient following up with her primary care provider. I stressed the importance of the patient returning to the emergency department immediately if her symptoms were to worsen or if she were to develop any dizziness, shortness of breath, difficulty breathing, chest pain, blurry vision, loss of vision, nausea, vomiting, abdominal pain, fever, chills, back pain, or any other complaints. Patient verbalized agreement and understanding with this treatment plan and discharge. Differential Diagnosis Differential Diagnoses: The differential diagnosis associated with the presentation includes Needle stick Admission/Observation Consideration of admission/observation: Escalation of care including admission/observation considered Patient would have been admitted to the hospital had his clinical presentation warranted hospital admission. Lab Data [facility] Lab Attestation statement: I reviewed the patient's lab results. My interpretation of these results are in the MDM Rationale portion of this note. 08/09/25 13:48 08/09/25 13:48 Labs: Lab Results 08/09/25 Range/Units 13:48 WBC 14.0 H (4.8-10.8) X10*3/uL RBC 4.36 L (4.60-5.80) X10*6/uL Hgb 13.2 L (14.0-18.0) g/dl Hct 38.2 L (42.0-52.0) % MCV 87.6 (80.0-98.0) fL MCH 30.3 (27.0-33.0) pg MCHC 34.6 (31.0-36.0) g/dl RDW 11.9 (11.0-16.0) % Plt Count 217 (160-400) X10*3/uL MPV 11.1 (9.4-12.4) fL Immature Gran % (Auto) 0.4 (0.0-0.4) % Neut % (Auto) 58.9 (45-73) % Lymph % (Auto) 29.8 (20-40) % Dewitt % (Auto) 9.8 (2-11) % Eos % (Auto) 0.9 (0-4) % Baso % (Auto) 0.2 (0-2) % Lymph # (Auto) 4.2 (1.2-4.9) X10*3/uL Dewitt # (Auto) 1.4 H (0.1-1.2) X10*3/uL Eos # (Auto) 0.1 (0.0-0.4) X10*3/uL Baso # (Auto) 0.0 (0.0-0.2) X10*3/uL Abs Immat Gran (auto) 0.05 H (0.00-0.03) X10*3/uL Absolute Neuts (auto) 8.3 (2.0-8.3) x10*3/uL Absolute Nucleated RBC 0.000 (0.0-0.012) X10*3/uL Nucleated RBC % (auto) 0.0 (0.0-0.2) /100WBC Sodium 139 (135-145) mmol/L Potassium 4.0 (3.3-5.1) mmol/L Chloride 108 (96-108) mmol/L Carbon Dioxide 25 (22-29) mmol/L Anion Gap 10 L (12-20) BUN 12 (9-16) mg/dL Creatinine 0.80 (0.5-1.4) mg/dL Estim Creat Clear Calc 120.0 Estimated GFR > 60 Random Glucose 94 (60-115) mg/dL Calcium 9.0 (8.4-10.2) mg/dL Total Bilirubin 0.4 (0.0-1.0) mg/dL Direct Bilirubin 0.1 (0.0-0.5) mg/dL AST 29 (5-37) U/L ALT 44 H (0-40) U/L Alkaline Phosphatase 47 (39-117) U/L Total Protein 7.0 (6.5-8.0) g/dL Albumin 4.5 (3.5-5.0) g/dL Amylase 58 (28-100) U/L Lipase 20 (8-78) U/L Scores Additional Scores HIV Needle Stick Risk Assesmsent: Score: <<0.001% Discharge Plan Discharge Clinical Impression: Needle stick, hypodermic, accidental Qualifiers: Encounter type: initial encounter Qualified Code(s): W46.0XXA - Contact with hypodermic needle, initial encounter Patient Disposition: Home, Self-Care Instructions: Needle Stick Injuries (ED) Additional Instructions: Your risk for dorota any transmissible diseases from your needle stick injury is very low <0.002%. We will call you if any of your results are positive. IF you are prescribed home medications and/or you are taking over the counter medications at home - it is very important you continue to do so as prescribed / directed unless told otherwise. Follow up with your primary care provider. Return to the emergency department immediately if your symptoms worsen or if you develop any numbness, tingling, dizziness, shortness of breath, difficulty breathing, chest pain, blurry vision, loss of vision, nausea, vomiting, abdominal pain, fever, chills, back pain, or any other complaints. Please see the information below about our Patient Portal. If you are not yet enrolled in the [facility] Patient Portal, you will receive an enrollment email invitation following your visit to any [facility] setting. You may also self-enroll in the Patient Portal by visiting our website: [email or web address] The following information is required to access the Patient Portal: - Your [facility] Medical Record Number - Your personal home email address (must match what is in your electronic medical record, Registration staff can assist with this) - Name - Date of Capabilities of the Patient Portal: - Message some providers - View upcoming appointments - Access your health summary, medical history, and visit history - View current conditions and allergies - View procedure and lab results - View your medications, including guidelines, side effects, and precautions - Complete pre-appointment questionnaires requested by your provider - Ready summary reports of your office visits and procedures To access the Patient Portal Mobile Aleida, follow these directions: - Search [employer] in the Aleida Store or Infol[employer] Store - Download the Aleida - Search for [facility] - Enter your login/password Prescriptions: No Action cholecalciferol (vitamin D3) 1,250 mcg (50,000 unit) capsule 1,250 mcg PO QWEEK 84 Days Qty: 12 0RF estradiol valerate 20 mg/mL oil 5 mg IM FR ibuprofen 200 mg Tablet 400 mg PO Q6H PRN (Reason: Migraine Headache) albuterol sulfate 90 mcg/actuation HFA aerosol inhaler 2 puff inhalation Q4-6H Qty: 8.5 0RF Flonase Sensimist 27.5 mcg/actuation spray,suspension 1 spray intranasal DAILY Rx Instructions: into each nostril Zyrtec 10 mg capsule 10 mg PO DAILY PRN dextroamphetamine-amphetamine [Adderall XR] 15 mg capsule,extended release 24hr 15 mg PO QAM chlorhexidine gluconate 0.12 % mouthwash 15 ml buccal BID Qty: 300 0RF Rx Instructions: wish for 30 seconds with 15 mL (one capful) of undiluted oral rinse after toothbrushing, then expectorate; repeat twice daily (morning and evening) until symptoms resolve rizatriptan 5 mg tablet See Rx Instructions PO .COMPLEX Qty: 10 3RF Rx Instructions: take 1-2 tablets at onset of headache; if no relief, may repeat 1-2 tablets after at least 2 hrs. maximum of 20 mg per 24 hours Referrals: Maricruz Madsen PA [Primary Care Provider, Endocrinology] Interventions: ED Discharge Assessment Last Done: 08/09/25 14:00 Discharge Date/Time: 08/09/25 14:01 Print Language: German
[2025-08-09 13:58] LABS: MANUAL DIFF FLAG NO
[2025-08-09 14:00] VITALS: BP 124/88; PULSE 100; RESP 16; TEMP 36.7; O2SAT 97
[2025-08-09 14:00] LABS: Hematocrit 38.2 % (42.0-52.0); Hemoglobin 13.2 g/dl (14.0-18.0); Imm Gran Abs Auto 0.05 X10*3/uL (0.00-0.03); Imm Gran Pct Auto 0.4 % (0.0-0.4); Lymphocytes Absolute Auto 4.2 X10*3/uL (1.2-4.9); Mean Corpuscular HGB Conc 34.6 g/dl (31.0-36.0); Mean Corpuscular Hemoglobin 30.3 pg (27.0-33.0); Mean Corpuscular Volume 87.6 fL (80.0-98.0); NRBC Abs Auto 0.000 X10*3/uL (0.0-0.012); NRBC Pct Auto 0.0 /100WBC (0.0-0.2); Platelet Count 217 X10*3/uL (160-400); Red Blood Count 4.36 X10*6/uL (4.60-5.80); White Blood Count 14.0 X10*3/uL (4.8-10.8)
[2025-08-09 14:15] LABS: Alanine Aminotransferase 44 U/L (0-40); Albumin Level 4.5 g/dL (3.5-5.0); Alkaline Phosphatase 47 U/L (39-117); Amylase 58 U/L (28-100); Anion Gap 10 (12-20); Aspartate Amino Transferase 29 U/L (5-37); Blood Urea Nitrogen 12 mg/dL (9-16); Calcium 9.0 mg/dL (8.4-10.2); Carbon Dioxide 25 mmol/L (22-29); Chloride 108 mmol/L (96-108); Creatinine Clr Calc Pharmacy 120.0; Estimated Glomerular Filt Rate > 60; Lipase 20 U/L (8-78); Potassium 4.0 mmol/L (3.3-5.1); Sodium 139 mmol/L (135-145); Total Protein 7.0 g/dL (6.5-8.0)
--- OUTSIDE RECORDS SUMMARY | 2025-08-09 15:08 | XMS_ITS | Clinical Summary ---
Author Organization [facility] Address [address] [place] [address] Care Team Providers Care Industrial Sales Manager Name Role Phone Unavailable Primary Care Provider [...] of 3 - 19+ 3-dose series) 2012 HIV Screening 12/10/2023 Hepatitis C Screening 12/10/2023 Social Influencers of Health Screening 12/10/2023 Depression Screening 11/11/2024 COVID-19 Vaccine ( - 2023-2 5 season) 2025 Influenza Vaccine (#1) 2025 RSV Immunization Adult Patie nts (1 - 1-dose 75+ series) 2068 HIB Vaccines Aged Out No longer eligi [...] 5 Years) and At-Risk Patients (6 to 49 Years) Aged Out No longer eligible b ased on patient's age to complete this topic RSV Immunization Patients Un gregor 20 months Aged Out No longer eligible b ased on patient's age to complete this topic Varicella Vaccines Aged Out No longer eligible based on patient's age to complete this topic
--- OUTSIDE RECORDS SUMMARY | 2025-08-09 15:08 | XMS_ITS | Clinical Summary ---
Author Organization [facility] Address [address] [place] [address] Care Team Providers Care Sexual Abuse Counsellor Name Role Phone Unavailable Primary Care Provider [...] 69 05/25/2017 10:56 AM EDT Temperature 36.7 C (98 F) 05/25/2017 10:56 AM EDT Respiratory Rate 18 05/25/2017 10:56 AM EDT Oxygen Saturation 99% 05/25/2017 10:56 AM EDT Inhaled Oxygen Concentration - - Weight 61.2 kg (135 lb) 05/24/2017 4:41 PM EDT Height 170.2 cm (5' 7 ) 05/24/2017 4:41 PM EDT Body Mass Index 21.14 05/24/2017 4:41 PM EDT Plan of Treatment Not on file
[2025-08-10 06:03] LABS: HBS Num1 0.16 mIU/mL (0-7.99); HBc Num1 0.07 S/CO (0.00-0.79); HBsAGNum1 0.41 S/CO (0.00-0.99); HIV Num 1 0.05 S/CO (0.00-0.99); Hepatitis B Surface Antigen Negative (Negative); ~HepC Num1 0.06 S/CO (0.00-0.79); ~Hepatitis B Surface Antibody NONREACTIVE (Nonreactive); ~Hepatitis C Antibody Nonreactive (Nonreactive)
== END 2025-08-09 14:01 | disposition home or self-care (01) ==
PROVIDERS: Physician Assistant Medical; Emergency Provider Emergency Medicine; PCP Physician Assistant Medical
DX: Z20.828 Contact with and (suspected) exposure to other viral communicable diseases (principal); Z20.6 Contact with and (suspected) exposure to human immunodeficiency virus [HIV]; Z79.899 Other long term (current) drug therapy
CPT/HCPCS: 36415; 80048; 80076; 82150; 83690; 85025; 86704; 86706; 86803; 87340; 87389; 99282; 99283

== ENCOUNTER 2025-10-21 10:42 | Outpatient (AMB) | payer OTHER, SELFPAY ==
--- NOTE | 2025-10-21 10:53 | MHC.PC.OV ---
Vital Signs 10/21/25 10:59 Height 5 ft 4 in Weight 151 lb 8 oz BMI 26.0 BP 102/70 Blood Pressure Location Lt brachial Position Sitting Respiration 16 Pulse 88 Pulse Source Pulse Oximeter Temp 98 F Temp Source Temporal Artery Scan Pulse Oximetry (%) 98 Oxygen Delivery Method Room Air Intake Visit Reasons: Follow up,medications Intake Note: Aracelis presents in the office today for a medication follow up. Rubber Chemist Required: No Allergies pollen extracts Allergy (Mild, Verified 10/21/25 10:55) Unknown dog dander Allergy (Unknown, Verified 10/21/25 10:55) Unknown house dust mite Allergy (Unknown, Verified 10/21/25 10:55) Unknown Medication List - Last Reconciled 10/22/25 by TAY Decker albuterol sulfate 90 mcg/actuation 2 puffs inhalation Q4-6H cetirizine (Zyrtec) 10 mg PO DAILY PRN chlorhexidine gluconate 0.12% 15 mL buccal BID cholecalciferol (vitamin D3) 1,250 mcg PO QWEEK 12 weeks dextroamphetamine-amphetamine 15 mg ER (Adderall XR) 25 mg PO QAM escitalopram oxalate 20 mg PO DAILY estradiol valerate 5 mg IM FR fluticasone furoate 27.5 mcg/actuation (Flonase Sensimist) 1 spray intranasal DAILY ibuprofen 400 mg PO Q6H PRN rizatriptan take 1-2 tablets at onset of headache; if no relief, may repeat 1-2 tablets after at least 2 hrs. maximum of 20 mg per 24 hours Tobacco use date assessed: 10/21/25 Dental Screening Dental Screen Date: 10/21/25 Did you have a dental visit in the last 12 months?: No Did you have a dental problem in the last 6 months where you did not have access to dental care?: No Was dental information given to patient?: Patient declined HPI HPI Comments History of Present Illness Details This is a 30-year-old transgender female presenting for follow up. She has PTSD, major depression, NATANAEL. Patient is estranged from her family. She endorses memory issues and concentration problems related to mental health. She struggles with executive functioning. She has apsychiatrist, Dr. Cortes, at [facility]. Last week she ended therapy with Don Dumont. She is unsure she is doing to pursue therapy again right now. Currently taking Adderall, Lexapro. Patient tried Zoloft and Wellbutrin in the past which were not effective. The patient is disabled. Dr. Baker from [facility] prescribes estradiol injections. Patient requesting genetic karyoptype testing in regard to possibly proceeding with SRS. Patient has described that when she turns quickly to the left she is off balance. Patient says intermittently left leg gives out and has foot drop when walking since childhood. No MRI of spine done. Patient describes being clumsy and tripping over things frequently. She is able to catch herself. Endorses intermittent tingling in bilateral lower extremities, worse on the left. No recent head trauma or history of diagnosed concussion. EMG was ordered but not completed. Patient has history of migraines associated with aura of flashing lights in the right eye. No double vision or loss of vision. Denies eye pain. Endorses chronic pain in the lower back. Denies loss of bowel or bladder control. Rheumatoid factor, SAVANA and Lyme negative/normal. Denies known family history of MS or neurodegenerative diseases. X-ray of the lumbar spine 04/14/2025 was normal. X-ray of the pelvis and left hip was also normal. MRI of the cervical spine showed left subarticular disc herniation at C5-C6 resulting in left neuroforaminal narrowing. MRI of the brain showed no abnormalities and borderline position of the cerebellar tonsils. Vitamin-D level was deficient at 17, and the patient was started on high dose vitamin-D. TSH has fluctuated. It was 5.97 which is mildly elevated. ROS: Constitutional: No fevers or chills. No night sweats. Respiratory: No cough Cardiovascular: No chest pain Neurologic: No syncope, seizures, tremors. See HPI Skin: No rash Psychiatric: See HPI Physical exam: Constitutional: Alert, in no distress. Neck: Supple, Full range of motion. No lymphadenopathy. No palpable thyroid masses. Respiratory: Clear to auscultation. Cardiovascular: S1 S2 regular. No murmurs. Neurologic:?Alert and oriented x 3, no focal deficits observed, reflexes equal and symmetric.? Normal gait.? Musculoskeletal: Pain with lumbar flexion and extension. Negative SLRs bilaterally. Lower extremity strength 5/5 bilaterally. Hand egg tester 5/5 bilaterally. Extremities: Warm and well perfused. No clubbing, cyanosis or edema. Intact peripheral pulses bilaterally. Psychiatric: Normal mood and affect [facility] Medical History Pain, dental ADHD Vitamin D deficiency Chronic fatigue Weakness Paresthesia Other intra-abdominal and pelvic swelling, mass and lump Left groin mass Transgender person on hormone therapy Abnormal TSH Memory difficulty Migraines Chronic allergic rhinitis Low back pain Multiple joint pain Bloating Alternating constipation and diarrhea PTSD (post-traumatic stress disorder) Memory loss Headache Depression Anxiety Imbalance GERD (gastroesophageal reflux disease) IBS (irritable bowel syndrome) Gallstone Surgical History Status post laparoscopic cholecystectomy History of laparoscopic cholecystectomy (~08/18/24) No pertinent past surgical history Family History Father Substance use Alcoholism Mother Thyroid disorder Other FH: mental illness Social History (Updated 10/21/25 @ 10:59 by Ashley Minor CMA) Household Members: None Housing: Apartment Do you presently have visiting nurse or other home services: No Alcohol intake: current Alcohol intake frequency: former alcohol drinker Comment: Occassionaly Patient Tobacco Use Status: Never used Tobacco e-Cigarette/Vaping Use: Never Used Second Hand Smoke Exposure: No Substance Use Type: Marijuana service: No Current occupational status: disabled Cognitive needs: No Hearing needs: No Vision needs: Yes (glasses) Questionnaire Thrive Questionnaire Date Thrive assessed: 11/16/24 I am a: Patient What is your living situation today?: I have a place to live, but I am worried about losing it in the future Within the past 12 months, did the food you bought not last and you didn't have the money to get more?: Often true Within the past 12 months, did you worry whether your food would run out before you got money to buy more?: Often true Do you have trouble paying for medicines?: I choose not to answer this question Do you have trouble getting transportation to medical appointments?: I choose not to answer this question Do you have trouble paying your heating and electricity bill?: Yes Do you have trouble taking care of your child, family member or friend?: No Do you have trouble with day-to-day activities such as bathing, preparing meals, shopping, managing finances, etc.?: Yes Are you currently unemployed and looking for a job?: Yes Are you interested in more education?: Yes Currently or been in a relationship where the following occur: I choose not to answer THRIVE Score: 4 NATANAEL-7 AMB Questionnaire NATANAEL-7 Date NATANAEL - 7 assessed: 02/18/25 Source: Developed by Drs. Todd Packer, Griselda Rao, Honorio Lebron and colleagues, with an educational tali from [employer]. Physical exam (Primary Care) Vital Signs: Last Vital Signs Temp 98 F 10/21/25 10:59 Pulse 88 10/21/25 10:59 Resp 16 10/21/25 10:59 BP 102/70 10/21/25 10:59 Pulse Ox 98 10/21/25 10:59 Oxygen Delivery Method Room Air 10/21/25 10:59 BMI result Body Mass Index 26.0 Tobacco/Smoking Status: Tobacco use Status Tobacco use date assessed 10/21/25 10/21/25 11:00 Patient Tobacco Use Status Never used Tobacco 10/21/25 11:00 e-Cigarette/Vaping Use Never Used 10/21/25 11:00 Thrive Assessment: Date of Thrive Assessment Date Thrive assessed 11/16/24 10/21/25 11:00 Currently or been in a relationship where the following occur: I choose not to answer Coding Level of Care Code Est Pt Level 5 (56547) Add On Problem Visit Only Diagnoses Left leg paresthesias R20.2 Abnormal TSH R79.89 Vitamin D deficiency E55.9 Anxiety F41.9 Depression F32.A ADHD F90.9 Low back pain M54.50 Left leg weakness R29.898 Time Spent (min) 45 Comment direct patient care/eval, completing documentation, chart review Assessment & Plan Assessment & Plan (1) Left leg paresthesias: Code(s): R20.2 - Paresthesia of skin Category: Medical (2) Abnormal TSH: Code(s): R79.89 - Other specified abnormal findings of blood chemistry Category: Medical (3) Vitamin D deficiency: Code(s): E55.9 - Vitamin D deficiency, unspecified Category: Medical (4) Anxiety: Code(s): F41.9 - Anxiety disorder, unspecified Category: Medical (5) Depression: Code(s): F32.A - Depression, unspecified Category: Medical (6) ADHD: Code(s): F90.9 - Attention-deficit hyperactivity disorder, unspecified type Category: Medical (7) Low back pain: Code(s): M54.50 - Low back pain, unspecified Category: Medical (8) Left leg weakness: Code(s): R29.898 - Other symptoms and signs involving the musculoskeletal system Category: Medical Plan Patient will proceed with MRI of the lumbar spine to rule out disc herniation or other source of nerve compression given reported leg weakness, paresthesias and foot drop. Proceed with EMG for left lower extremity. Once tests are resulted, refer to neurology for consultation. Check labs. I will contact the lab regarding karyotyping request. Patient is still seeing psychiatry. Discontinued therapy last week due to a rupture during therapy. Pt unsure if she wants to proceed with new therapist at this time. Follow up in 3 months. Orders: Orders NE electromyogram (EMG) Today R20.2 - Paresthesia of skin NE nerve conduction velocity Today R20.2 - Paresthesia of skin MR lumbar spine wo con Today M21.372 - Foot drop, left foot, R29.898 - Other symptoms and signs involving the musculoskeletal system Medications: Refilled chlorhexidine gluconate 0.12% wish for 30 seconds with 15 mL (one capful) of undiluted oral rinse after toothbrushing, then expectorate; repeat twice daily (morning and evening) until symptoms resolve 15 mL buccal BID 300 mL 0RF
[2025-10-21 10:59] VITALS: BP 102/70; PULSE 88; RESP 16; TEMP 36.6; O2SAT 98; BMI 26.0
== END 2025-10-21 11:35 | disposition home or self-care (01) ==
LOC: HO.HMCFM 10:43
PROVIDERS: PCP Physician Assistant Medical; Visit Provider Physician Assistant Medical
DX: R20.2 Paresthesia of skin (principal); R79.89 Other specified abnormal findings of blood chemistry; E55.9 Vitamin D deficiency, unspecified; F41.9 Anxiety disorder, unspecified; F32.A Depression, unspecified; F90.9 Attention-deficit hyperactivity disorder, unspecified type; M54.50 Low back pain, unspecified; R29.898 Other symptoms and signs involving the musculoskeletal system

== ENCOUNTER → 2025-10-21 10:42 | Outpatient (BNVA) | payer OTHER, SELFPAY | PROVIDERS: PCP Physician Assistant Medical; Visit Provider Physician Assistant Medical | DX: R20.2 Paresthesia of skin (principal); R94.6 Abnormal results of thyroid function studies; E55.9 Vitamin D deficiency, unspecified; F41.9 Anxiety disorder, unspecified; F43.10 Post-traumatic stress disorder, unspecified; F32.A Depression, unspecified; F90.9 Attention-deficit hyperactivity disorder, unspecified type; M54.50 Low back pain, unspecified; R53.1 Weakness; Z79.899 Other long term (current) drug therapy | CPT/HCPCS: 99212 ==